=== PATIENT | female | born 1990 | race Asian ===

== ENCOUNTER 2016-04-13 09:37 | Inpatient (IN) | payer MEDICARE, MEDICAID ==
[~2016-04-13] VITALS: Ht 170.2 cm; Wt 89.0 kg
[~2016-04-13 09:37] MED LIST: RISP.5 PO
[2016-04-13] MEDS ORDERED: MAG HYDROX/AL HYDROX/SIMETH ES 30 ML SUSPENSION UDCUP PO PRN (13:15)
[2016-04-13] MEDS ORDERED: HydrOXYzine PAMOATE 50 MG CAPSULE PO PRN (13:15)
[2016-04-13] MEDS ORDERED: PROMETHAZINE HCL 25 MG TABLET PO PRN (13:15)
[2016-04-13 13:42] VITALS: BP 116/72
[2016-04-13] MEDS ORDERED: TUBERCULIN, PURIFIED PROTEIN DERIVATIVE 5 TU/0.1 ML SYG ID ONE (14:30)
[2016-04-13 17:13] VITALS: BP 95/80
[2016-04-13 17:15] VITALS: BP 95/80
[2016-04-13] MEDS: THIAMINE HCL 100 MG TABLET PO SCH (17:15)
[2016-04-13] MEDS ORDERED: LITHIUM CARBONATE 600 MG CAPSULE PO SCH (21:00)
[2016-04-13] MEDS ORDERED: OLANZapine 10 MG RAPDIS TABLET PO SCH (21:00)
[2016-04-14 01:25] VITALS: BP 123/69
[2016-04-14 08:17] VITALS: BP 115/64
[2016-04-14 08:26] LABS: BASOPHILS % (AUTO) 0.3 % (0.0-2.0); EOSINOPHILS % (AUTO) 2.6 % (1.0-6.0); HEMATOCRIT 40.9 % (36-46); HEMOGLOBIN 13.9 g/dL (12.0-16.0); LYMPHOCYTES # (AUTO) 3.9 K/uL (1.0-4.8); LYMPHOCYTES % (AUTO) 36.1 % (22.0-44.0); MEAN CORPUSCULAR HEMOGLOBIN 28.7 pg (26.0-34.0); MEAN CORPUSCULAR VOLUME 84 fL (80-100); MONOCYTES # (AUTO) 0.7 K/uL (0.1-1.0); MONOCYTES % (AUTO) 6.8 % (2.0-9.0); NEUTROPHILS # (AUTO) 5.8 K/uL (1.8-7.7); NEUTROPHILS % (AUTO) 54.2 % (40.0-70.0); PLATELET COUNT (AUTO) 483 K/uL (150-450); RED BLOOD CELL COUNT(AUTO) 4.84 MIL/uL (4.00-5.20); RED CELL DISTRIBUTION WIDTH 13.1 % (11.5-14.5); WHITE BLOOD COUNT (AUTO) 10.7 K/uL (4.5-11.0)
[2016-04-14 08:32] LABS: PREGNANCY RESULT, SERUM NEGATIVE (NEGATIVE)
[2016-04-14 08:34] LABS: LITHIUM 0.57 mmol/L (0.60-1.20)
[2016-04-14] MEDS: THIAMINE HCL 100 MG TABLET PO SCH ×2 (08:43→16:40)
[2016-04-14] MEDS: NICOTINE 21 MG/24 HOUR PATCH TD SCH (08:43)
[2016-04-14] MEDS: FOLIC ACID 1 MG TABLET PO SCH (08:43)
[2016-04-14] MEDS: MULTIVITAMINS WITH MINERALS, THERAPEUTIC TABLET PO SCH (08:43)
[2016-04-14 08:44] LABS: HEMOGLOBIN A1C 5.2 % (4.5-6.2)
[2016-04-14 08:45] LABS: ALANINE AMINOTRANSFERASE 17 U/L (12-78); ALBUMIN 3.4 g/dL (3.4-5.0); ANION GAP 10 mmol/L (8-16); ASPARTATE AMINOTRANSFERASE 10 U/L (15-37); BILIRUBIN,TOTAL 0.2 mg/dL (0.1-1.0); CALCIUM, TOTAL 8.7 mg/dL (8.8-10.5); CARBON DIOXIDE 25 mmol/L (22-29); CHLORIDE 107 mmol/L (98-107); CHOL/HDL RATIO 2.5 (3.9-5.7); CREATININE 0.62 mg/dL (0.60-1.30); GLOMERULAR FILTR. RATE CALC > 60 mL/min (>60); POTASSIUM 3.9 mmol/L (3.5-5.1); SODIUM SERUM 142 mmol/L (136-145); THYROID STIMULATING HORMONE 1.82 uIU/mL (0.36-3.74); TOTAL PROTEIN, SERUM 6.8 g/dL (6.4-8.2); UREA NITROGEN, BLOOD 13 mg/dL (7-18)
[2016-04-14 15:28] LABS: RAPID PLASMA REAGIN NONREACTIVE (NONREACTIVE)
[2016-04-14 16:18] VITALS: BP 110/76
[2016-04-14] MEDS ORDERED: OLANZapine 10 MG RAPDIS TABLET PO SCH (21:00)
[2016-04-15 02:59] VITALS: BP 101/61
[2016-04-15 07:58] LABS: APPEARANCE,URINE CLEAR (CLEAR); GLUCOSE, URINE (UA) NEGATIVE (NEGATIVE); KETONES,URINE NEGATIVE (NEGATIVE); LEUKOCYTE ESTERASE ,URINE TRACE (NEGATIVE); OCCULT BLOOD,URINE NEGATIVE (NEGATIVE); PH,URINE 6.5 (5.0-8.0); PROTEIN,URINE NEGATIVE (NEGATIVE)
[2016-04-15 08:01] LABS: ADD UA MICROSCOPIC YES
[2016-04-15 08:09] VITALS: BP 136/82
[2016-04-15] MEDS: NICOTINE 21 MG/24 HOUR PATCH TD SCH (08:38)
[2016-04-15] MEDS: THIAMINE HCL 100 MG TABLET PO SCH ×2 (08:38→16:06)
[2016-04-15] MEDS: MULTIVITAMINS WITH MINERALS, THERAPEUTIC TABLET PO SCH (08:39)
[2016-04-15] MEDS: FOLIC ACID 1 MG TABLET PO SCH (08:39)
[2016-04-15 08:43] LABS: RBC,URINE None Seen /HPF (0-2); SQUAMOUS EPITHELIAL CELL,UR Few /LPF (None Seen)
[2016-04-15] MEDS ORDERED: OLANZAPINE PAMOATE 405 MG/2.7 ML VIAL IM ONE (11:00)
[2016-04-15 13:48] VITALS: BP 132/69
[2016-04-15] MEDS: ACETAMINOPHEN 325 MG TABLET PO PRN (16:06)
[2016-04-15 16:12] VITALS: BP 114/67
[2016-04-15] MEDS: DIVALPROEX SODIUM 500 MG ER TABLET PO SCH (21:06)
[2016-04-15] MEDS: ZOLPIDEM TARTRATE 10 MG TABLET PO PRN (21:23)
[2016-04-16 00:20] VITALS: BP 110/60
[2016-04-16 08:34] VITALS: BP 112/74
[2016-04-16] MEDS: FOLIC ACID 1 MG TABLET PO SCH (08:56)
[2016-04-16] MEDS: MULTIVITAMINS WITH MINERALS, THERAPEUTIC TABLET PO SCH (08:56)
[2016-04-16] MEDS: THIAMINE HCL 100 MG TABLET PO SCH ×2 (08:56→16:39)
[2016-04-16] MEDS: NICOTINE 21 MG/24 HOUR PATCH TD SCH (09:01)
[2016-04-16 16:13] VITALS: BP 123/75
[2016-04-16] MEDS: LORazepam 2 MG TABLET PO PRN (16:18)
[2016-04-16] MEDS: DIVALPROEX SODIUM 500 MG ER TABLET PO SCH (20:36)
[2016-04-17 00:05] VITALS: BP 116/72
[2016-04-17] MEDS ORDERED: RISP3 PO (06:04)
[2016-04-17] MEDS ORDERED: RISP.5 PO (06:09)
[2016-04-17 08:09] VITALS: BP 117/71
[2016-04-17] MEDS: MULTIVITAMINS WITH MINERALS, THERAPEUTIC TABLET PO SCH (08:47)
[2016-04-17] MEDS: FOLIC ACID 1 MG TABLET PO SCH (08:47)
[2016-04-17] MEDS: THIAMINE HCL 100 MG TABLET PO SCH ×2 (08:47→16:41)
[2016-04-17] MEDS: NICOTINE 21 MG/24 HOUR PATCH TD SCH (08:48)
[2016-04-17 16:31] VITALS: BP 113/68
[2016-04-17] MEDS: DIVALPROEX SODIUM 500 MG ER TABLET PO SCH (20:35)
[2016-04-18 04:16] VITALS: BP 121/68
[2016-04-18] MEDS: THIAMINE HCL 100 MG TABLET PO SCH ×2 (08:42→16:28)
[2016-04-18] MEDS: MULTIVITAMINS WITH MINERALS, THERAPEUTIC TABLET PO SCH (08:42)
[2016-04-18] MEDS: FOLIC ACID 1 MG TABLET PO SCH (08:42)
[2016-04-18] MEDS: NICOTINE 21 MG/24 HOUR PATCH TD SCH (08:42)
[2016-04-18 12:53] VITALS: BP 108/70
[2016-04-18 16:02] VITALS: BP 122/62
[2016-04-18] MEDS: DIVALPROEX SODIUM 500 MG ER TABLET PO SCH (20:44)
[2016-04-18] MEDS: LORazepam 2 MG TABLET PO PRN (21:20)
[2016-04-19 04:35] VITALS: BP 104/65
[2016-04-19] MEDS: FOLIC ACID 1 MG TABLET PO SCH (08:33)
[2016-04-19] MEDS: MULTIVITAMINS WITH MINERALS, THERAPEUTIC TABLET PO SCH (08:33)
[2016-04-19] MEDS: NICOTINE 21 MG/24 HOUR PATCH TD SCH (08:33)
[2016-04-19] MEDS: THIAMINE HCL 100 MG TABLET PO SCH ×2 (08:33→16:42)
[2016-04-19 10:25] VITALS: BP 102/70
[2016-04-19 16:02] VITALS: BP 105/68
[2016-04-19] MEDS: DIVALPROEX SODIUM 500 MG ER TABLET PO SCH (20:42)
[2016-04-19] MEDS: ZOLPIDEM TARTRATE 10 MG TABLET PO PRN (21:12)
[2016-04-20 05:27] VITALS: BP 104/62
[2016-04-20 08:34] VITALS: BP 115/71
[2016-04-20] MEDS: THIAMINE HCL 100 MG TABLET PO SCH ×2 (08:42→16:45)
[2016-04-20] MEDS: FOLIC ACID 1 MG TABLET PO SCH (08:42)
[2016-04-20] MEDS: NICOTINE 21 MG/24 HOUR PATCH TD SCH (08:42)
[2016-04-20] MEDS: MULTIVITAMINS WITH MINERALS, THERAPEUTIC TABLET PO SCH (08:42)
[2016-04-20 16:13] VITALS: BP 118/66
[2016-04-20] MEDS: DIVALPROEX SODIUM 500 MG ER TABLET PO SCH (20:38)
[2016-04-21 00:36] VITALS: BP 110/62
[2016-04-21] MEDS: THIAMINE HCL 100 MG TABLET PO SCH ×2 (09:00→16:38)
[2016-04-21] MEDS: FOLIC ACID 1 MG TABLET PO SCH (09:00)
[2016-04-21] MEDS: NICOTINE 21 MG/24 HOUR PATCH TD SCH (09:00)
[2016-04-21] MEDS: MULTIVITAMINS WITH MINERALS, THERAPEUTIC TABLET PO SCH (09:00)
[2016-04-21 16:20] VITALS: BP 107/65
[2016-04-21] MEDS: DIVALPROEX SODIUM 500 MG ER TABLET PO SCH (20:52)
[2016-04-21] MEDS: ZOLPIDEM TARTRATE 10 MG TABLET PO PRN (22:31)
[2016-04-22 06:42] VITALS: BP 117/68
[2016-04-22 08:47] VITALS: BP 110/74
[2016-04-22] MEDS: THIAMINE HCL 100 MG TABLET PO SCH ×2 (09:58→16:26)
[2016-04-22] MEDS: NICOTINE 21 MG/24 HOUR PATCH TD SCH (09:58)
[2016-04-22] MEDS: MULTIVITAMINS WITH MINERALS, THERAPEUTIC TABLET PO SCH (09:58)
[2016-04-22] MEDS: FOLIC ACID 1 MG TABLET PO SCH (09:58)
[2016-04-22 16:21] VITALS: BP 120/76
[2016-04-22] MEDS: OLANZapine 5 MG RAPDIS TABLET PO PRN (16:37)
[2016-04-22] MEDS: DIVALPROEX SODIUM 500 MG ER TABLET PO SCH (20:22)
[2016-04-23 00:02] VITALS: BP 114/62
[2016-04-23 08:40] VITALS: BP 102/59
[2016-04-23] MEDS: THIAMINE HCL 100 MG TABLET PO SCH (09:00)
[2016-04-23] MEDS: FOLIC ACID 1 MG TABLET PO SCH (09:00)
[2016-04-23] MEDS: MULTIVITAMINS WITH MINERALS, THERAPEUTIC TABLET PO SCH (09:00)
[2016-04-23] MEDS: NICOTINE 21 MG/24 HOUR PATCH TD SCH (09:01)
[2016-04-23 16:15] VITALS: BP 113/65
[2016-04-23] MEDS: LORazepam 2 MG TABLET PO PRN (20:48)
[2016-04-23] MEDS: DIVALPROEX SODIUM 500 MG ER TABLET PO SCH (20:48)
[2016-04-24 00:03] VITALS: BP 118/63
[2016-04-24] MEDS: NICOTINE 21 MG/24 HOUR PATCH TD SCH (08:51)
[2016-04-24] MEDS: MULTIVITAMINS WITH MINERALS, THERAPEUTIC TABLET PO SCH (08:51)
[2016-04-24 16:15] VITALS: BP 120/73
[2016-04-24] MEDS: DIVALPROEX SODIUM 500 MG ER TABLET PO SCH (20:40)
[2016-04-25 04:12] VITALS: BP 127/71
[2016-04-25] MEDS: NICOTINE 21 MG/24 HOUR PATCH TD SCH (09:44)
[2016-04-25] MEDS: MULTIVITAMINS WITH MINERALS, THERAPEUTIC TABLET PO SCH (09:44)
[2016-04-25 16:17] VITALS: BP 115/67
[2016-04-25] MEDS: DIVALPROEX SODIUM 500 MG ER TABLET PO SCH (20:42)
[2016-04-26 00:35] VITALS: BP 107/62
[2016-04-26] MEDS: MULTIVITAMINS WITH MINERALS, THERAPEUTIC TABLET PO SCH (08:58)
[2016-04-26] MEDS: NICOTINE 21 MG/24 HOUR PATCH TD SCH (08:58)
[2016-04-26 16:41] VITALS: BP 113/68
[2016-04-26] MEDS: DIVALPROEX SODIUM 500 MG ER TABLET PO SCH (20:44)
[2016-04-26] MEDS: ZOLPIDEM TARTRATE 10 MG TABLET PO PRN (20:56)
[2016-04-27 00:23] VITALS: BP 110/66
[2016-04-27] MEDS: MULTIVITAMINS WITH MINERALS, THERAPEUTIC TABLET PO SCH (08:44)
[2016-04-27] MEDS: NICOTINE 21 MG/24 HOUR PATCH TD SCH (08:44)
[2016-04-27 09:19] VITALS: BP 110/65
[2016-04-27] MEDS: LORazepam 2 MG TABLET PO PRN (09:41)
[2016-04-27 16:08] VITALS: BP 105/75
[2016-04-27] MEDS: OLANZapine 5 MG RAPDIS TABLET PO PRN (20:12)
[2016-04-27] MEDS: DIVALPROEX SODIUM 500 MG ER TABLET PO SCH (20:12)
[2016-04-28 06:39] VITALS: BP 109/73
[2016-04-28 08:21] VITALS: BP 109/65
[2016-04-28] MEDS: LORazepam 2 MG TABLET PO PRN (08:42)
[2016-04-28] MEDS: NICOTINE 21 MG/24 HOUR PATCH TD SCH (08:42)
[2016-04-28] MEDS: OLANZapine 5 MG RAPDIS TABLET PO PRN (08:42)
[2016-04-28] MEDS: MULTIVITAMINS WITH MINERALS, THERAPEUTIC TABLET PO SCH (08:42)
[2016-04-28 16:09] VITALS: BP 112/67
[2016-04-28] MEDS: DIVALPROEX SODIUM 500 MG ER TABLET PO SCH (20:44)
[2016-04-29 01:59] VITALS: BP 120/67
[2016-04-29 08:17] VITALS: BP 104/80
[2016-04-29] MEDS: MULTIVITAMINS WITH MINERALS, THERAPEUTIC TABLET PO SCH (08:32)
[2016-04-29] MEDS: NICOTINE 21 MG/24 HOUR PATCH TD SCH (08:32)
[2016-04-29 16:06] VITALS: BP 112/60
[2016-04-29] MEDS: DIVALPROEX SODIUM 500 MG ER TABLET PO SCH (20:05)
[2016-04-30 04:04] VITALS: BP 123/75
[2016-04-30] MEDS: NICOTINE 21 MG/24 HOUR PATCH TD SCH (08:36)
[2016-04-30] MEDS: MULTIVITAMINS WITH MINERALS, THERAPEUTIC TABLET PO SCH (08:36)
[2016-04-30] MEDS: LORazepam 2 MG TABLET PO PRN (09:18)
[2016-04-30 16:14] VITALS: BP 114/74
[2016-04-30] MEDS: DIVALPROEX SODIUM 500 MG ER TABLET PO SCH (22:03)
[2016-05-01 00:08] VITALS: BP 118/72
[2016-05-01] MEDS: MULTIVITAMINS WITH MINERALS, THERAPEUTIC TABLET PO SCH (09:12)
[2016-05-01] MEDS: NICOTINE 21 MG/24 HOUR PATCH TD SCH (09:12)
[2016-05-01 17:29] VITALS: BP 118/75
[2016-05-01] MEDS: DIVALPROEX SODIUM 500 MG ER TABLET PO SCH (20:40)
[2016-05-02 01:48] VITALS: BP 121/77
[2016-05-02] MEDS: MULTIVITAMINS WITH MINERALS, THERAPEUTIC TABLET PO SCH (08:50)
[2016-05-02] MEDS: NICOTINE 21 MG/24 HOUR PATCH TD SCH (08:51)
[2016-05-02 09:19] VITALS: BP 97/45
[2016-05-02 10:12] VITALS: BP 101/57
[2016-05-02 17:39] VITALS: BP 125/68
[2016-05-02] MEDS: DIVALPROEX SODIUM 500 MG ER TABLET PO SCH (20:35)
[2016-05-02] MEDS: ZOLPIDEM TARTRATE 10 MG TABLET PO PRN (22:12)
[2016-05-03 01:49] VITALS: BP 106/68
[2016-05-03] MEDS: NICOTINE 21 MG/24 HOUR PATCH TD SCH (08:30)
[2016-05-03] MEDS: MULTIVITAMINS WITH MINERALS, THERAPEUTIC TABLET PO SCH (08:30)
[2016-05-03 16:09] VITALS: BP 120/65
[2016-05-03] MEDS: OLANZapine 5 MG RAPDIS TABLET PO PRN (19:40)
[2016-05-03] MEDS: DIVALPROEX SODIUM 500 MG ER TABLET PO SCH (20:31)
[2016-05-04 04:15] VITALS: BP 122/71
[2016-05-04] MEDS: MULTIVITAMINS WITH MINERALS, THERAPEUTIC TABLET PO SCH (09:21)
[2016-05-04] MEDS: NICOTINE 21 MG/24 HOUR PATCH TD SCH (09:22)
[2016-05-04] MEDS: LORazepam 2 MG TABLET PO PRN (09:25)
[2016-05-04 16:10] VITALS: BP 102/71
[2016-05-04] MEDS: DIVALPROEX SODIUM 500 MG ER TABLET PO SCH (20:22)
[2016-05-04] MEDS: OLANZapine 5 MG RAPDIS TABLET PO PRN (20:56)
[2016-05-05 00:28] VITALS: BP 100/66
[2016-05-05] MEDS: MULTIVITAMINS WITH MINERALS, THERAPEUTIC TABLET PO SCH (08:36)
[2016-05-05] MEDS: NICOTINE 21 MG/24 HOUR PATCH TD SCH (08:36)
[2016-05-05 08:37] VITALS: BP 105/60
[2016-05-05 16:08] VITALS: BP 106/67
[2016-05-05] MEDS: DIVALPROEX SODIUM 500 MG ER TABLET PO SCH (20:19)
[2016-05-06 03:54] VITALS: BP 108/68
[2016-05-06] MEDS: MULTIVITAMINS WITH MINERALS, THERAPEUTIC TABLET PO SCH (08:51)
[2016-05-06] MEDS: NICOTINE 21 MG/24 HOUR PATCH TD SCH (08:52)
[2016-05-06 16:01] VITALS: BP 112/67
[2016-05-06] MEDS: DIVALPROEX SODIUM 500 MG ER TABLET PO SCH (20:17)
[2016-05-06] MEDS: OLANZapine 5 MG RAPDIS TABLET PO PRN (21:21)
[2016-05-07 04:48] VITALS: BP 109/62
[2016-05-07] MEDS: MULTIVITAMINS WITH MINERALS, THERAPEUTIC TABLET PO SCH (08:28)
[2016-05-07] MEDS: NICOTINE 21 MG/24 HOUR PATCH TD SCH (08:28)
[2016-05-07 09:02] VITALS: BP 98/63
[2016-05-07] MEDS ORDERED: HALOPERIDOL 5 MG TABLET PO PRN (13:15)
[2016-05-07] MEDS ORDERED: TUBERCULIN, PURIFIED PROTEIN DERIVATIVE 5 TU/0.1 ML SYG ID ONE (13:15)
[2016-05-07 16:07] VITALS: BP 130/62
[2016-05-07] MEDS: DIVALPROEX SODIUM 500 MG ER TABLET PO SCH (21:16)
[2016-05-08 04:12] VITALS: BP 125/81
[2016-05-08 07:54] LABS: BASOPHILS # (AUTO) 0.03 K/uL (0.00-0.20); BASOPHILS % (AUTO) 0.3 % (0.0-2.0); EOSINOPHILS % (AUTO) 1.65 % (1.0-6.0); HEMATOCRIT 38.6 % (36-46); HEMOGLOBIN 13.2 g/dL (12.0-16.0); LYMPHOCYTES # (AUTO) 4.5 K/uL (1.0-4.8); MEAN CORPUSCULAR HEMOGLOBIN 29.2 pg (26.0-34.0); MEAN CORPUSCULAR HGB CONC 34.3 G/dL (31.0-37.0); MEAN CORPUSCULAR VOLUME 85 fL (80-100); MONOCYTES # (AUTO) 1.4 K/uL (0.1-1.0); MONOCYTES % (AUTO) 11.4 % (2.0-9.0); NEUTROPHILS # (AUTO) 6.1 K/uL (1.8-7.7); NEUTROPHILS % (AUTO) 49.7 % (40.0-70.0); PLATELET COUNT (AUTO) 402 K/uL (150-450); RED BLOOD CELL COUNT(AUTO) 4.53 MIL/uL (4.00-5.20); RED CELL DISTRIBUTION WIDTH 14.9 % (11.5-14.5); WHITE BLOOD COUNT (AUTO) 12.3 K/uL (4.5-11.0)
[2016-05-08] MEDS: NICOTINE 21 MG/24 HOUR PATCH TD SCH (08:36)
[2016-05-08] MEDS: MULTIVITAMINS WITH MINERALS, THERAPEUTIC TABLET PO SCH (08:37)
[2016-05-08] MEDS ORDERED: CloZAPine 25 MG TABLET PO SCH (09:00)
[2016-05-08 10:17] VITALS: BP 118/73
[2016-05-08] MEDS: LORazepam 2 MG TABLET PO PRN ×2 (12:19→17:31)
[2016-05-08 16:03] VITALS: BP 105/89
[2016-05-08] MEDS: DIVALPROEX SODIUM 500 MG ER TABLET PO SCH (20:40)
[2016-05-08] MEDS: ZOLPIDEM TARTRATE 10 MG TABLET PO PRN (20:55)
[2016-05-09 06:46] VITALS: BP 107/61
[2016-05-09 08:02] VITALS: BP 99/58
[2016-05-09] MEDS: NICOTINE 21 MG/24 HOUR PATCH TD SCH (08:23)
[2016-05-09] MEDS: MULTIVITAMINS WITH MINERALS, THERAPEUTIC TABLET PO SCH (08:23)
[2016-05-09] MEDS ORDERED: CloZAPine 25 MG TABLET PO SCH ×2 (09:00→21:00)
[2016-05-09] MEDS ORDERED: INFLUENZA VIRUS VACCINE QVS 2016-17 (3YR+)/PF 60 MCG/0.5 ML SYRINGE IM ONE (11:15)
[2016-05-09 13:00] VITALS: BP 115/56
[2016-05-09] MEDS: LORazepam 2 MG TABLET PO PRN ×2 (13:04→22:06)
[2016-05-09 16:05] VITALS: BP 124/64
[2016-05-09] MEDS: DIVALPROEX SODIUM 500 MG ER TABLET PO SCH (20:16)
[2016-05-10 00:10] VITALS: BP 120/72
[2016-05-10 08:08] VITALS: BP 107/58
[2016-05-10] MEDS: MULTIVITAMINS WITH MINERALS, THERAPEUTIC TABLET PO SCH (08:28)
[2016-05-10] MEDS: NICOTINE 21 MG/24 HOUR PATCH TD SCH (08:28)
[2016-05-10] MEDS ORDERED: CloZAPine 25 MG TABLET PO SCH ×2 (09:00→21:00)
[2016-05-10 16:14] VITALS: BP 109/67
[2016-05-10] MEDS: DIVALPROEX SODIUM 500 MG ER TABLET PO SCH (21:10)
[2016-05-11 00:01] VITALS: BP 116/72
[2016-05-11 08:37] VITALS: BP 107/60
[2016-05-11] MEDS: MULTIVITAMINS WITH MINERALS, THERAPEUTIC TABLET PO SCH (08:40)
[2016-05-11] MEDS: NICOTINE 21 MG/24 HOUR PATCH TD SCH (08:40)
[2016-05-11] MEDS: CloZAPine 25 MG TABLET PO SCH ×2 (08:40→21:04)
[2016-05-11 16:41] VITALS: BP 116/62
[2016-05-11] MEDS: DIVALPROEX SODIUM 500 MG ER TABLET PO SCH (21:05)
[2016-05-12 06:24] VITALS: BP 101/61
[2016-05-12 08:02] VITALS: BP 104/62
[2016-05-12 08:29] LABS: GLUCOSE, URINE (UA) 250 mg/dL (NEGATIVE); KETONES,URINE 15 mg/dL (NEGATIVE); LEUKOCYTE ESTERASE ,URINE NEGATIVE (NEGATIVE); OCCULT BLOOD,URINE NEGATIVE (NEGATIVE); PROTEIN,URINE NEGATIVE (NEGATIVE)
[2016-05-12] MEDS: CloZAPine 25 MG TABLET PO SCH ×2 (08:34→20:35)
[2016-05-12] MEDS: MULTIVITAMINS WITH MINERALS, THERAPEUTIC TABLET PO SCH (08:34)
[2016-05-12] MEDS: NICOTINE 21 MG/24 HOUR PATCH TD SCH (08:35)
[2016-05-12 09:07] LABS: ADD UA MICROSCOPIC YES; APPEARANCE,URINE HAZY (CLEAR)
[2016-05-12 09:54] LABS: RBC,URINE 0-2 /HPF (0-2); SQUAMOUS EPITHELIAL CELL,UR Few /LPF (None Seen); WBC,URINE 0-2 /HPF (0-5)
[2016-05-12 16:14] VITALS: BP 120/84
[2016-05-12] MEDS: DIVALPROEX SODIUM 500 MG ER TABLET PO SCH (20:35)
[2016-05-12] MEDS: ZOLPIDEM TARTRATE 10 MG TABLET PO PRN (22:17)
[2016-05-13 00:47] VITALS: BP 102/65
[2016-05-13 08:19] VITALS: BP 104/57
[2016-05-13] MEDS: MULTIVITAMINS WITH MINERALS, THERAPEUTIC TABLET PO SCH (08:34)
[2016-05-13] MEDS: NICOTINE 21 MG/24 HOUR PATCH TD SCH (08:37)
[2016-05-13] MEDS ORDERED: OLANZAPINE PAMOATE 405 MG/2.7 ML VIAL IM SCH (09:00)
[2016-05-13] MEDS ORDERED: CloZAPine 25 MG TABLET PO SCH (09:00)
[2016-05-13 16:10] VITALS: BP 109/64
[2016-05-13] MEDS: LORazepam 2 MG TABLET PO PRN (16:23)
[2016-05-13] MEDS: DIVALPROEX SODIUM 500 MG ER TABLET PO SCH (20:31)
[2016-05-13] MEDS ORDERED: CloZAPine 100 MG TABLET PO SCH (21:00)
[2016-05-14 06:58] VITALS: BP 107/62
[2016-05-14 08:02] VITALS: BP 110/64
[2016-05-14] MEDS: MULTIVITAMINS WITH MINERALS, THERAPEUTIC TABLET PO SCH (08:22)
[2016-05-14] MEDS: NICOTINE 21 MG/24 HOUR PATCH TD SCH (08:22)
[2016-05-14] MEDS ORDERED: CloZAPine 25 MG TABLET PO SCH (09:00)
[2016-05-14 16:08] VITALS: BP 119/66
[2016-05-14] MEDS: LORazepam 2 MG TABLET PO PRN (17:22)
[2016-05-14] MEDS: DIVALPROEX SODIUM 500 MG ER TABLET PO SCH (20:35)
[2016-05-14] MEDS ORDERED: CloZAPine 100 MG TABLET PO SCH (21:00)
[2016-05-15 02:15] VITALS: BP 109/62
[2016-05-15 08:02] VITALS: BP 108/70
[2016-05-15 08:06] LABS: BASOPHILS # (AUTO) 0.05 K/uL (0.00-0.20); BASOPHILS % (AUTO) 0.5 % (0.0-2.0); EOSINOPHILS # (AUTO) 0.28 K/uL (0.00-0.70); EOSINOPHILS % (AUTO) 2.66 % (1.0-6.0); HEMATOCRIT 39.9 % (36-46); HEMOGLOBIN 13.7 g/dL (12.0-16.0); LYMPHOCYTES # (AUTO) 4.4 K/uL (1.0-4.8); LYMPHOCYTES % (AUTO) 42.2 % (22.0-44.0); MEAN CORPUSCULAR HEMOGLOBIN 29.2 pg (26.0-34.0); MEAN CORPUSCULAR HGB CONC 34.2 G/dL (31.0-37.0); MEAN CORPUSCULAR VOLUME 85 fL (80-100); MONOCYTES # (AUTO) 1.2 K/uL (0.1-1.0); MONOCYTES % (AUTO) 11.1 % (2.0-9.0); NEUTROPHILS # (AUTO) 4.6 K/uL (1.8-7.7); NEUTROPHILS % (AUTO) 43.6 % (40.0-70.0); PLATELET COUNT (AUTO) 385 K/uL (150-450); RED BLOOD CELL COUNT(AUTO) 4.68 MIL/uL (4.00-5.20); RED CELL DISTRIBUTION WIDTH 13.4 % (11.5-14.5); WHITE BLOOD COUNT (AUTO) 10.5 K/uL (4.5-11.0)
[2016-05-15] MEDS: NICOTINE 21 MG/24 HOUR PATCH TD SCH (08:53)
[2016-05-15] MEDS: MULTIVITAMINS WITH MINERALS, THERAPEUTIC TABLET PO SCH (08:53)
[2016-05-15] MEDS ORDERED: CloZAPine 25 MG TABLET PO SCH (09:00)
[2016-05-15 16:08] VITALS: BP 109/62
[2016-05-15] MEDS: DIVALPROEX SODIUM 500 MG ER TABLET PO SCH (20:41)
[2016-05-15] MEDS ORDERED: CloZAPine 100 MG TABLET PO SCH (21:00)
[2016-05-16 01:50] VITALS: BP 104/66
[2016-05-16 08:28] VITALS: BP 106/63
[2016-05-16] MEDS: NICOTINE 21 MG/24 HOUR PATCH TD SCH (09:05)
[2016-05-16] MEDS: CloZAPine 100 MG TABLET PO SCH ×2 (09:05→20:58)
[2016-05-16] MEDS: MULTIVITAMINS WITH MINERALS, THERAPEUTIC TABLET PO SCH (09:06)
[2016-05-16 16:12] VITALS: BP 123/78
[2016-05-16] MEDS: DIVALPROEX SODIUM 500 MG ER TABLET PO SCH (20:59)
[2016-05-17 05:10] VITALS: BP 121/71
[2016-05-17 08:02] VITALS: BP 118/74
[2016-05-17] MEDS: MULTIVITAMINS WITH MINERALS, THERAPEUTIC TABLET PO SCH (08:36)
[2016-05-17] MEDS: CloZAPine 100 MG TABLET PO SCH ×2 (08:37→20:36)
[2016-05-17] MEDS: NICOTINE 21 MG/24 HOUR PATCH TD SCH (08:37)
[2016-05-17 16:12] VITALS: BP 119/62
[2016-05-17] MEDS: DIVALPROEX SODIUM 500 MG ER TABLET PO SCH (20:36)
[2016-05-18 03:24] VITALS: BP 123/71
[2016-05-18 08:38] VITALS: BP 109/60
[2016-05-18] MEDS ORDERED: CloZAPine 25 MG TABLET PO SCH (09:00)
[2016-05-18] MEDS: NICOTINE 21 MG/24 HOUR PATCH TD SCH (09:06)
[2016-05-18] MEDS: MULTIVITAMINS WITH MINERALS, THERAPEUTIC TABLET PO SCH (09:06)
[2016-05-18 16:19] VITALS: BP 115/59
[2016-05-18] MEDS ORDERED: CloZAPine 100 MG TABLET PO SCH (21:00)
[2016-05-18] MEDS: DIVALPROEX SODIUM 500 MG ER TABLET PO SCH (21:19)
[2016-05-19 06:11] VITALS: BP 105/66
[2016-05-19 08:02] VITALS: BP 110/78
[2016-05-19] MEDS: MULTIVITAMINS WITH MINERALS, THERAPEUTIC TABLET PO SCH (08:25)
[2016-05-19] MEDS: NICOTINE 21 MG/24 HOUR PATCH TD SCH (08:25)
[2016-05-19] MEDS ORDERED: CloZAPine 25 MG TABLET PO SCH (09:00)
[2016-05-19 16:01] VITALS: BP 122/67
[2016-05-19] MEDS: DIVALPROEX SODIUM 500 MG ER TABLET PO SCH (20:52)
[2016-05-19] MEDS ORDERED: CloZAPine 100 MG TABLET PO SCH (21:00)
[2016-05-20 05:55] VITALS: BP 103/60
[2016-05-20 08:06] VITALS: BP 109/61
[2016-05-20] MEDS: MULTIVITAMINS WITH MINERALS, THERAPEUTIC TABLET PO SCH (09:17)
[2016-05-20] MEDS: CloZAPine 100 MG TABLET PO SCH ×2 (09:17→20:43)
[2016-05-20] MEDS: NICOTINE 21 MG/24 HOUR PATCH TD SCH (09:17)
[2016-05-20 16:02] VITALS: BP 112/72
[2016-05-20] MEDS: DIVALPROEX SODIUM 500 MG ER TABLET PO SCH (20:42)
[2016-05-21 00:15] VITALS: BP 116/62
[2016-05-21] MEDS: NICOTINE 21 MG/24 HOUR PATCH TD SCH (09:00)
[2016-05-21] MEDS: MULTIVITAMINS WITH MINERALS, THERAPEUTIC TABLET PO SCH (11:32)
[2016-05-21] MEDS: CloZAPine 100 MG TABLET PO SCH ×2 (11:32→20:46)
[2016-05-21 14:51] VITALS: BP 123/73
[2016-05-21 16:10] VITALS: BP 115/66
[2016-05-21] MEDS: LORazepam 2 MG TABLET PO PRN (16:26)
[2016-05-21] MEDS: DIVALPROEX SODIUM 500 MG ER TABLET PO SCH (20:46)
[2016-05-22 02:19] VITALS: BP 113/60
[2016-05-22 08:11] LABS: BASOPHILS % (AUTO) 0.3 % (0.0-2.0); EOSINOPHILS % (AUTO) 5.1 % (1.0-6.0); HEMATOCRIT 39.8 % (36-46); HEMOGLOBIN 13.7 g/dL (12.0-16.0); LYMPHOCYTES # (AUTO) 3.5 K/uL (1.0-4.8); LYMPHOCYTES % (AUTO) 32.9 % (22.0-44.0); MEAN CORPUSCULAR HGB CONC 34.3 G/dL (31.0-37.0); MEAN CORPUSCULAR VOLUME 85 fL (80-100); MONOCYTES % (AUTO) 9.9 % (2.0-9.0); NEUTROPHILS # (AUTO) 5.4 K/uL (1.8-7.7); NEUTROPHILS % (AUTO) 51.8 % (40.0-70.0); PLATELET COUNT (AUTO) 355 K/uL (150-450); RED BLOOD CELL COUNT(AUTO) 4.71 MIL/uL (4.00-5.20); RED CELL DISTRIBUTION WIDTH 13.4 % (11.5-14.5); WHITE BLOOD COUNT (AUTO) 10.5 K/uL (4.5-11.0)
[2016-05-22 08:30] VITALS: BP 108/71
[2016-05-22] MEDS: NICOTINE 21 MG/24 HOUR PATCH TD SCH (08:42)
[2016-05-22] MEDS: CloZAPine 100 MG TABLET PO SCH ×2 (08:42→20:44)
[2016-05-22] MEDS: MULTIVITAMINS WITH MINERALS, THERAPEUTIC TABLET PO SCH (08:42)
[2016-05-22] MEDS: LORazepam 2 MG TABLET PO PRN (09:19)
[2016-05-22 10:16] VITALS: BP 108/73
[2016-05-22 16:36] VITALS: BP 125/77
[2016-05-22] MEDS: DIVALPROEX SODIUM 500 MG ER TABLET PO SCH (20:45)
[2016-05-23 00:17] VITALS: BP 110/64
[2016-05-23 08:20] VITALS: BP 126/67
[2016-05-23] MEDS: CloZAPine 100 MG TABLET PO SCH ×2 (08:31→20:38)
[2016-05-23] MEDS: MULTIVITAMINS WITH MINERALS, THERAPEUTIC TABLET PO SCH (08:31)
[2016-05-23] MEDS: NICOTINE 21 MG/24 HOUR PATCH TD SCH (08:31)
[2016-05-23 16:11] VITALS: BP 118/72
[2016-05-23] MEDS: DIVALPROEX SODIUM 500 MG ER TABLET PO SCH (20:39)
[2016-05-24 02:34] VITALS: BP 100/63
[2016-05-24 08:39] VITALS: BP 118/65
[2016-05-24] MEDS: MULTIVITAMINS WITH MINERALS, THERAPEUTIC TABLET PO SCH (09:22)
[2016-05-24] MEDS: NICOTINE 21 MG/24 HOUR PATCH TD SCH (09:22)
[2016-05-24] MEDS: CloZAPine 100 MG TABLET PO SCH ×2 (09:22→20:29)
[2016-05-24 16:04] VITALS: BP 123/68
[2016-05-24] MEDS: DIVALPROEX SODIUM 500 MG ER TABLET PO SCH (20:29)
[2016-05-25 00:31] VITALS: BP 126/61
[2016-05-25 08:38] VITALS: BP 114/57
[2016-05-25] MEDS: NICOTINE 21 MG/24 HOUR PATCH TD SCH (09:06)
[2016-05-25] MEDS: MULTIVITAMINS WITH MINERALS, THERAPEUTIC TABLET PO SCH (09:06)
[2016-05-25] MEDS: CloZAPine 100 MG TABLET PO SCH ×2 (09:06→21:05)
[2016-05-25 16:10] VITALS: BP 119/72
[2016-05-25] MEDS: DIVALPROEX SODIUM 500 MG ER TABLET PO SCH (21:04)
[2016-05-26 01:14] VITALS: BP 123/71
[2016-05-26 08:37] VITALS: BP 101/58
[2016-05-26] MEDS: MULTIVITAMINS WITH MINERALS, THERAPEUTIC TABLET PO SCH (08:54)
[2016-05-26] MEDS: CloZAPine 100 MG TABLET PO SCH ×2 (08:54→20:52)
[2016-05-26] MEDS: NICOTINE 21 MG/24 HOUR PATCH TD SCH (08:54)
[2016-05-26 16:01] VITALS: BP 112/67
[2016-05-26] MEDS: DIVALPROEX SODIUM 500 MG ER TABLET PO SCH (20:53)
[2016-05-27 00:18] VITALS: BP 107/68
[2016-05-27] MEDS: CloZAPine 100 MG TABLET PO SCH ×2 (08:42→21:00)
[2016-05-27] MEDS: NICOTINE 21 MG/24 HOUR PATCH TD SCH (08:42)
[2016-05-27] MEDS: MULTIVITAMINS WITH MINERALS, THERAPEUTIC TABLET PO SCH (08:42)
[2016-05-27 08:58] VITALS: BP 105/63
[2016-05-27 16:02] VITALS: BP 108/67
[2016-05-27] MEDS: DIVALPROEX SODIUM 500 MG ER TABLET PO SCH (21:00)
[2016-05-28 01:09] VITALS: BP 101/67
[2016-05-28 08:02] VITALS: BP 118/67
[2016-05-28] MEDS: CloZAPine 100 MG TABLET PO SCH ×2 (09:21→21:22)
[2016-05-28] MEDS: MULTIVITAMINS WITH MINERALS, THERAPEUTIC TABLET PO SCH (09:21)
[2016-05-28] MEDS: NICOTINE 21 MG/24 HOUR PATCH TD SCH (09:21)
[2016-05-28 16:02] VITALS: BP 109/78
[2016-05-28] MEDS: DIVALPROEX SODIUM 500 MG ER TABLET PO SCH (21:22)
[2016-05-29 06:21] VITALS: BP 101/67
[2016-05-29 08:11] LABS: BASOPHILS % (AUTO) 0.2 % (0.0-2.0); EOSINOPHILS % (AUTO) 5.2 % (1.0-6.0); HEMATOCRIT 39.5 % (36-46); HEMOGLOBIN 13.7 g/dL (12.0-16.0); LYMPHOCYTES # (AUTO) 4.1 K/uL (1.0-4.8); LYMPHOCYTES % (AUTO) 37.1 % (22.0-44.0); MEAN CORPUSCULAR HEMOGLOBIN 29.3 pg (26.0-34.0); MEAN CORPUSCULAR HGB CONC 34.5 G/dL (31.0-37.0); MEAN CORPUSCULAR VOLUME 85 fL (80-100); MONOCYTES % (AUTO) 8.7 % (2.0-9.0); NEUTROPHILS # (AUTO) 5.4 K/uL (1.8-7.7); NEUTROPHILS % (AUTO) 48.8 % (40.0-70.0); PLATELET COUNT (AUTO) 385 K/uL (150-450); RED BLOOD CELL COUNT(AUTO) 4.66 MIL/uL (4.00-5.20); RED CELL DISTRIBUTION WIDTH 13.2 % (11.5-14.5); WHITE BLOOD COUNT (AUTO) 11.1 K/uL (4.5-11.0)
[2016-05-29] MEDS: NICOTINE 21 MG/24 HOUR PATCH TD SCH (08:28)
[2016-05-29] MEDS: CloZAPine 100 MG TABLET PO SCH ×2 (08:28→20:46)
[2016-05-29] MEDS: MULTIVITAMINS WITH MINERALS, THERAPEUTIC TABLET PO SCH (08:28)
[2016-05-29 08:35] VITALS: BP 118/66
[2016-05-29 11:34] LABS: CLOZAPINE 406 ng/mL (350-650); CLOZAPINE & NORCLOZAPINE 506 ng/mL; NORCLOZAPINE 100 ng/mL (Not Estab.)
[2016-05-29 16:02] VITALS: BP 126/73
[2016-05-29] MEDS: DIVALPROEX SODIUM 500 MG ER TABLET PO SCH (20:47)
[2016-05-30 06:26] VITALS: BP 103/65
[2016-05-30 08:19] VITALS: BP 123/83
[2016-05-30] MEDS: CloZAPine 100 MG TABLET PO SCH ×2 (08:26→20:13)
[2016-05-30] MEDS: MULTIVITAMINS WITH MINERALS, THERAPEUTIC TABLET PO SCH (08:26)
[2016-05-30] MEDS: NICOTINE 21 MG/24 HOUR PATCH TD SCH (08:27)
[2016-05-30 16:03] VITALS: BP 115/71
[2016-05-30] MEDS: DIVALPROEX SODIUM 500 MG ER TABLET PO SCH (20:13)
[2016-05-31 01:37] VITALS: BP 105/78
[2016-05-31] MEDS: NICOTINE 21 MG/24 HOUR PATCH TD SCH (08:24)
[2016-05-31] MEDS: CloZAPine 100 MG TABLET PO SCH ×2 (08:24→20:40)
[2016-05-31] MEDS: MULTIVITAMINS WITH MINERALS, THERAPEUTIC TABLET PO SCH (08:24)
[2016-05-31 08:51] VITALS: BP 119/69
[2016-05-31 16:10] VITALS: BP 111/75
[2016-05-31] MEDS: DIVALPROEX SODIUM 500 MG ER TABLET PO SCH (20:39)
[2016-06-01 02:46] VITALS: BP 119/71
[2016-06-01 08:13] VITALS: BP 113/62
[2016-06-01] MEDS: CloZAPine 100 MG TABLET PO SCH ×2 (08:28→20:43)
[2016-06-01] MEDS: MULTIVITAMINS WITH MINERALS, THERAPEUTIC TABLET PO SCH (08:28)
[2016-06-01] MEDS: NICOTINE 21 MG/24 HOUR PATCH TD SCH (08:29)
[2016-06-01 16:59] VITALS: BP 113/64
[2016-06-01] MEDS: DIVALPROEX SODIUM 500 MG ER TABLET PO SCH (20:43)
[2016-06-02 00:52] VITALS: BP 105/68
[2016-06-02 08:02] VITALS: BP 101/60
[2016-06-02] MEDS: MULTIVITAMINS WITH MINERALS, THERAPEUTIC TABLET PO SCH (08:41)
[2016-06-02] MEDS: NICOTINE 21 MG/24 HOUR PATCH TD SCH (08:41)
[2016-06-02] MEDS: CloZAPine 100 MG TABLET PO SCH ×2 (08:41→20:31)
[2016-06-02 16:08] VITALS: BP 110/84
[2016-06-02] MEDS: DIVALPROEX SODIUM 500 MG ER TABLET PO SCH (20:31)
[2016-06-03 00:19] VITALS: BP 121/80
[2016-06-03 08:05] VITALS: BP 118/62
[2016-06-03] MEDS: MULTIVITAMINS WITH MINERALS, THERAPEUTIC TABLET PO SCH (08:35)
[2016-06-03] MEDS: CloZAPine 100 MG TABLET PO SCH ×2 (08:35→20:52)
[2016-06-03] MEDS: NICOTINE 21 MG/24 HOUR PATCH TD SCH (08:35)
[2016-06-03 16:05] VITALS: BP 126/69
[2016-06-03] MEDS: DIVALPROEX SODIUM 500 MG ER TABLET PO SCH (20:52)
[2016-06-04 00:20] VITALS: BP 106/60
[2016-06-04 08:23] VITALS: BP 100/61
[2016-06-04] MEDS: CloZAPine 100 MG TABLET PO SCH ×2 (09:00→20:36)
[2016-06-04] MEDS: NICOTINE 21 MG/24 HOUR PATCH TD SCH (09:00)
[2016-06-04] MEDS: MULTIVITAMINS WITH MINERALS, THERAPEUTIC TABLET PO SCH (09:00)
[2016-06-04 16:10] VITALS: BP 104/77
[2016-06-04] MEDS: DIVALPROEX SODIUM 500 MG ER TABLET PO SCH (20:37)
[2016-06-05 00:52] VITALS: BP 106/74
[2016-06-05 08:02] VITALS: BP 122/83
[2016-06-05 08:05] LABS: BASOPHILS # (AUTO) 0.05 K/uL (0.00-0.20); BASOPHILS % (AUTO) 0.5 % (0.0-2.0); EOSINOPHILS # (AUTO) 0.31 K/uL (0.00-0.70); EOSINOPHILS % (AUTO) 2.83 % (1.0-6.0); HEMATOCRIT 42.4 % (36-46); LYMPHOCYTES # (AUTO) 4.4 K/uL (1.0-4.8); LYMPHOCYTES % (AUTO) 40.3 % (22.0-44.0); MEAN CORPUSCULAR HEMOGLOBIN 28.5 pg (26.0-34.0); MEAN CORPUSCULAR VOLUME 87 fL (80-100); MONOCYTES # (AUTO) 1.1 K/uL (0.1-1.0); MONOCYTES % (AUTO) 9.8 % (2.0-9.0); NEUTROPHILS # (AUTO) 5.1 K/uL (1.8-7.7); NEUTROPHILS % (AUTO) 46.6 % (40.0-70.0); PLATELET COUNT (AUTO) 291 K/uL (150-450); RED BLOOD CELL COUNT(AUTO) 4.89 MIL/uL (4.00-5.20)
[2016-06-05] MEDS: MULTIVITAMINS WITH MINERALS, THERAPEUTIC TABLET PO SCH (08:55)
[2016-06-05] MEDS: CloZAPine 100 MG TABLET PO SCH ×2 (08:55→20:45)
[2016-06-05] MEDS: NICOTINE 21 MG/24 HOUR PATCH TD SCH (08:55)
[2016-06-05 16:03] VITALS: BP 123/77
[2016-06-05] MEDS: DIVALPROEX SODIUM 500 MG ER TABLET PO SCH (20:45)
[2016-06-06 02:16] VITALS: BP 110/76
[2016-06-06 08:26] VITALS: BP 122/66
[2016-06-06] MEDS: MULTIVITAMINS WITH MINERALS, THERAPEUTIC TABLET PO SCH (09:21)
[2016-06-06] MEDS: CloZAPine 100 MG TABLET PO SCH ×2 (09:21→20:32)
[2016-06-06] MEDS: NICOTINE 21 MG/24 HOUR PATCH TD SCH (09:21)
[2016-06-06 16:03] VITALS: BP 115/73
[2016-06-06] MEDS: DIVALPROEX SODIUM 500 MG ER TABLET PO SCH (20:32)
[2016-06-07 00:47] VITALS: BP 101/60
[2016-06-07] MEDS: CloZAPine 100 MG TABLET PO SCH ×2 (08:49→20:55)
[2016-06-07] MEDS: MULTIVITAMINS WITH MINERALS, THERAPEUTIC TABLET PO SCH (08:49)
[2016-06-07] MEDS: NICOTINE 21 MG/24 HOUR PATCH TD SCH (08:49)
[2016-06-07 16:00] VITALS: BP 123/77
[2016-06-07] MEDS: DIVALPROEX SODIUM 500 MG ER TABLET PO SCH (20:55)
[2016-06-08 04:14] VITALS: BP 104/62
[2016-06-08 08:12] VITALS: BP 100/61
[2016-06-08] MEDS: NICOTINE 21 MG/24 HOUR PATCH TD SCH (08:55)
[2016-06-08] MEDS: CloZAPine 100 MG TABLET PO SCH ×2 (08:55→20:43)
[2016-06-08] MEDS: MULTIVITAMINS WITH MINERALS, THERAPEUTIC TABLET PO SCH (08:55)
[2016-06-08 16:12] VITALS: BP 122/73
[2016-06-08] MEDS: DIVALPROEX SODIUM 500 MG ER TABLET PO SCH (20:42)
[2016-06-09 00:02] VITALS: BP 107/67
[2016-06-09 08:02] VITALS: BP 104/58
[2016-06-09] MEDS: CloZAPine 100 MG TABLET PO SCH ×2 (08:50→20:39)
[2016-06-09] MEDS: MULTIVITAMINS WITH MINERALS, THERAPEUTIC TABLET PO SCH (08:50)
[2016-06-09] MEDS: NICOTINE 21 MG/24 HOUR PATCH TD SCH (08:51)
[2016-06-09 16:10] VITALS: BP 114/62
[2016-06-09] MEDS: DIVALPROEX SODIUM 500 MG ER TABLET PO SCH (20:39)
[2016-06-10 00:40] VITALS: BP 118/69
[2016-06-10 08:14] VITALS: BP 119/45
[2016-06-10] MEDS: MULTIVITAMINS WITH MINERALS, THERAPEUTIC TABLET PO SCH (08:38)
[2016-06-10] MEDS: CloZAPine 100 MG TABLET PO SCH ×2 (08:38→20:21)
[2016-06-10] MEDS: NICOTINE 21 MG/24 HOUR PATCH TD SCH (08:39)
[2016-06-10 09:30] VITALS: BP 110/62
[2016-06-10 16:02] VITALS: BP 113/82
[2016-06-10] MEDS: DIVALPROEX SODIUM 500 MG ER TABLET PO SCH (20:21)
[2016-06-11 00:04] VITALS: BP 102/60
[2016-06-11 08:25] VITALS: BP 102/62
[2016-06-11] MEDS: NICOTINE 21 MG/24 HOUR PATCH TD SCH (09:04)
[2016-06-11] MEDS: CloZAPine 100 MG TABLET PO SCH ×2 (09:04→20:38)
[2016-06-11] MEDS: MULTIVITAMINS WITH MINERALS, THERAPEUTIC TABLET PO SCH (09:04)
[2016-06-11 16:06] VITALS: BP 122/77
[2016-06-11] MEDS: DIVALPROEX SODIUM 500 MG ER TABLET PO SCH (20:38)
[2016-06-12 00:52] VITALS: BP 110/67
[2016-06-12 08:17] LABS: BASOPHILS % (AUTO) 0.2 % (0.0-2.0); EOSINOPHILS % (AUTO) 3.8 % (1.0-6.0); HEMATOCRIT 37.8 % (36-46); HEMOGLOBIN 13.1 g/dL (12.0-16.0); LYMPHOCYTES # (AUTO) 4.3 K/uL (1.0-4.8); LYMPHOCYTES % (AUTO) 40.7 % (22.0-44.0); MEAN CORPUSCULAR HEMOGLOBIN 29.4 pg (26.0-34.0); MEAN CORPUSCULAR HGB CONC 34.5 G/dL (31.0-37.0); MEAN CORPUSCULAR VOLUME 85 fL (80-100); MONOCYTES % (AUTO) 9.3 % (2.0-9.0); NEUTROPHILS # (AUTO) 4.9 K/uL (1.8-7.7); PLATELET COUNT (AUTO) 332 K/uL (150-450); RED BLOOD CELL COUNT(AUTO) 4.45 MIL/uL (4.00-5.20); RED CELL DISTRIBUTION WIDTH 13.1 % (11.5-14.5); WHITE BLOOD COUNT (AUTO) 10.7 K/uL (4.5-11.0)
[2016-06-12 08:26] VITALS: BP 110/61
[2016-06-12] MEDS: NICOTINE 21 MG/24 HOUR PATCH TD SCH (08:30)
[2016-06-12] MEDS: CloZAPine 100 MG TABLET PO SCH ×2 (08:30→20:33)
[2016-06-12] MEDS: MULTIVITAMINS WITH MINERALS, THERAPEUTIC TABLET PO SCH (08:30)
[2016-06-12 16:09] VITALS: BP 119/73
[2016-06-12] MEDS: DIVALPROEX SODIUM 500 MG ER TABLET PO SCH (20:32)
[2016-06-13 02:58] VITALS: BP 123/75
[2016-06-13 08:40] VITALS: BP 108/70
[2016-06-13] MEDS: NICOTINE 21 MG/24 HOUR PATCH TD SCH (09:36)
[2016-06-13] MEDS: MULTIVITAMINS WITH MINERALS, THERAPEUTIC TABLET PO SCH (09:36)
[2016-06-13] MEDS: CloZAPine 100 MG TABLET PO SCH ×2 (09:36→20:45)
[2016-06-13 16:07] VITALS: BP 130/76
[2016-06-13] MEDS: DIVALPROEX SODIUM 500 MG ER TABLET PO SCH (20:44)
[2016-06-14 02:48] VITALS: BP 125/77
[2016-06-14 08:17] VITALS: BP 122/67
[2016-06-14] MEDS: MULTIVITAMINS WITH MINERALS, THERAPEUTIC TABLET PO SCH (09:35)
[2016-06-14] MEDS: NICOTINE 21 MG/24 HOUR PATCH TD SCH (09:35)
[2016-06-14] MEDS: CloZAPine 100 MG TABLET PO SCH ×2 (09:35→20:41)
[2016-06-14 16:07] VITALS: BP 121/76
[2016-06-14] MEDS: DIVALPROEX SODIUM 500 MG ER TABLET PO SCH (20:41)
[2016-06-15 04:34] VITALS: BP 123/81
[2016-06-15 08:02] VITALS: BP 95/57
[2016-06-15] MEDS: CloZAPine 100 MG TABLET PO SCH ×2 (08:49→20:32)
[2016-06-15] MEDS: MULTIVITAMINS WITH MINERALS, THERAPEUTIC TABLET PO SCH (08:49)
[2016-06-15] MEDS: NICOTINE 21 MG/24 HOUR PATCH TD SCH (08:50)
[2016-06-15 10:07] VITALS: BP 128/82
[2016-06-15 16:00] VITALS: BP 112/74
[2016-06-15] MEDS: DIVALPROEX SODIUM 500 MG ER TABLET PO SCH (20:32)
[2016-06-16 00:36] VITALS: BP 110/62
[2016-06-16 08:32] VITALS: BP 106/63
[2016-06-16] MEDS: NICOTINE 21 MG/24 HOUR PATCH TD SCH (08:47)
[2016-06-16] MEDS: CloZAPine 100 MG TABLET PO SCH ×2 (08:47→20:37)
[2016-06-16] MEDS: MULTIVITAMINS WITH MINERALS, THERAPEUTIC TABLET PO SCH (08:47)
[2016-06-16 16:03] VITALS: BP 125/77
[2016-06-16] MEDS: DIVALPROEX SODIUM 500 MG ER TABLET PO SCH (20:37)
[2016-06-17 00:11] VITALS: BP 109/69
[2016-06-17 07:30] VITALS: BP 108/61
[2016-06-17 08:00] VITALS: BP 108/61
[2016-06-17] MEDS: CloZAPine 100 MG TABLET PO SCH ×2 (08:47→20:36)
[2016-06-17] MEDS: NICOTINE 21 MG/24 HOUR PATCH TD SCH (08:47)
[2016-06-17] MEDS: MULTIVITAMINS WITH MINERALS, THERAPEUTIC TABLET PO SCH (08:47)
[2016-06-17 16:08] VITALS: BP 121/76
[2016-06-17] MEDS: DIVALPROEX SODIUM 500 MG ER TABLET PO SCH (20:36)
[2016-06-18 06:56] VITALS: BP 111/65
[2016-06-18 08:42] VITALS: BP 105/62
[2016-06-18] MEDS: MULTIVITAMINS WITH MINERALS, THERAPEUTIC TABLET PO SCH (09:19)
[2016-06-18] MEDS: NICOTINE 21 MG/24 HOUR PATCH TD SCH (09:19)
[2016-06-18] MEDS: CloZAPine 100 MG TABLET PO SCH ×2 (09:19→20:30)
[2016-06-18 16:02] VITALS: BP 124/64
[2016-06-18] MEDS: DIVALPROEX SODIUM 500 MG ER TABLET PO SCH (20:30)
[2016-06-19 00:57] VITALS: BP 113/60
[2016-06-19 08:11] VITALS: BP 103/66
[2016-06-19 08:26] LABS: BASOPHILS # (AUTO) 0.02 K/uL (0.00-0.20); BASOPHILS % (AUTO) 0.3 % (0.0-2.0); EOSINOPHILS # (AUTO) 0.32 K/uL (0.00-0.70); EOSINOPHILS % (AUTO) 3.52 % (1.0-6.0); HEMATOCRIT 42.1 % (36-46); HEMOGLOBIN 14.1 g/dL (12.0-16.0); LYMPHOCYTES # (AUTO) 3.8 K/uL (1.0-4.8); LYMPHOCYTES % (AUTO) 42.4 % (22.0-44.0); MEAN CORPUSCULAR HEMOGLOBIN 28.9 pg (26.0-34.0); MEAN CORPUSCULAR HGB CONC 33.5 G/dL (31.0-37.0); MEAN CORPUSCULAR VOLUME 86 fL (80-100); NEUTROPHILS # (AUTO) 3.9 K/uL (1.8-7.7); NEUTROPHILS % (AUTO) 42.9 % (40.0-70.0); PLATELET COUNT (AUTO) 292 K/uL (150-450); RED BLOOD CELL COUNT(AUTO) 4.88 MIL/uL (4.00-5.20); RED CELL DISTRIBUTION WIDTH 14.1 % (11.5-14.5); WHITE BLOOD COUNT (AUTO) 9.1 K/uL (4.5-11.0)
[2016-06-19] MEDS: MULTIVITAMINS WITH MINERALS, THERAPEUTIC TABLET PO SCH (08:33)
[2016-06-19] MEDS: NICOTINE 21 MG/24 HOUR PATCH TD SCH (08:33)
[2016-06-19] MEDS: CloZAPine 100 MG TABLET PO SCH ×2 (08:33→20:22)
[2016-06-19 16:19] VITALS: BP 120/80
[2016-06-19] MEDS: DIVALPROEX SODIUM 500 MG ER TABLET PO SCH (20:22)
[2016-06-20 00:01] VITALS: BP 108/67
[2016-06-20 08:02] VITALS: BP 134/69
[2016-06-20] MEDS: MULTIVITAMINS WITH MINERALS, THERAPEUTIC TABLET PO SCH (09:01)
[2016-06-20] MEDS: CloZAPine 100 MG TABLET PO SCH ×2 (09:01→20:33)
[2016-06-20] MEDS: NICOTINE 21 MG/24 HOUR PATCH TD SCH (09:02)
[2016-06-20 16:01] VITALS: BP 131/72
[2016-06-20 16:53] VITALS: BP 131/72
[2016-06-20] MEDS: DIVALPROEX SODIUM 500 MG ER TABLET PO SCH (20:33)
[2016-06-21 00:01] VITALS: BP 104/69
[2016-06-21 08:05] VITALS: BP 136/80
[2016-06-21] MEDS: MULTIVITAMINS WITH MINERALS, THERAPEUTIC TABLET PO SCH (08:38)
[2016-06-21] MEDS: NICOTINE 21 MG/24 HOUR PATCH TD SCH (08:38)
[2016-06-21] MEDS: CloZAPine 100 MG TABLET PO SCH ×2 (08:38→20:36)
[2016-06-21 16:10] VITALS: BP 132/74
[2016-06-21] MEDS: MAGNESIUM HYDROXIDE SUSPENSION 30 ML UDCUP PO PRN (16:27)
[2016-06-21] MEDS: DIVALPROEX SODIUM 500 MG ER TABLET PO SCH (20:37)
[2016-06-22 06:32] VITALS: BP 108/74
[2016-06-22 08:22] VITALS: BP 101/63
[2016-06-22] MEDS: CloZAPine 100 MG TABLET PO SCH ×2 (08:25→20:34)
[2016-06-22] MEDS: MULTIVITAMINS WITH MINERALS, THERAPEUTIC TABLET PO SCH (08:25)
[2016-06-22] MEDS: NICOTINE 21 MG/24 HOUR PATCH TD SCH (08:58)
[2016-06-22 16:05] VITALS: BP 108/67
[2016-06-22] MEDS: DIVALPROEX SODIUM 500 MG ER TABLET PO SCH (20:34)
[2016-06-22] MEDS: TOPIRAMATE 25 MG TABLET PO SCH (20:34)
[2016-06-23 00:05] VITALS: BP 105/60
[2016-06-23 08:11] VITALS: BP 116/62
[2016-06-23] MEDS: CloZAPine 100 MG TABLET PO SCH ×2 (09:31→20:43)
[2016-06-23] MEDS: NICOTINE 21 MG/24 HOUR PATCH TD SCH (09:31)
[2016-06-23] MEDS: MULTIVITAMINS WITH MINERALS, THERAPEUTIC TABLET PO SCH (09:31)
[2016-06-23 16:02] VITALS: BP 136/72
[2016-06-23] MEDS: DIVALPROEX SODIUM 500 MG ER TABLET PO SCH (20:43)
[2016-06-23] MEDS: TOPIRAMATE 25 MG TABLET PO SCH (20:45)
[2016-06-24 05:11] VITALS: BP 105/56
[2016-06-24 08:01] VITALS: BP 110/62
[2016-06-24] MEDS: CloZAPine 100 MG TABLET PO SCH ×2 (08:13→20:15)
[2016-06-24] MEDS: MULTIVITAMINS WITH MINERALS, THERAPEUTIC TABLET PO SCH (08:13)
[2016-06-24] MEDS: NICOTINE 21 MG/24 HOUR PATCH TD SCH (08:14)
[2016-06-24 16:07] VITALS: BP 125/73
[2016-06-24] MEDS: DIVALPROEX SODIUM 500 MG ER TABLET PO SCH (20:15)
[2016-06-24] MEDS: TOPIRAMATE 25 MG TABLET PO SCH (20:15)
[2016-06-25 00:41] VITALS: BP 110/68
[2016-06-25 08:02] VITALS: BP 110/59
[2016-06-25] MEDS: MULTIVITAMINS WITH MINERALS, THERAPEUTIC TABLET PO SCH (08:39)
[2016-06-25] MEDS: NICOTINE 21 MG/24 HOUR PATCH TD SCH (08:39)
[2016-06-25] MEDS: CloZAPine 100 MG TABLET PO SCH ×2 (08:39→20:33)
[2016-06-25 16:11] VITALS: BP 124/88
[2016-06-25 18:46] VITALS: BP 128/83
[2016-06-25] MEDS: DIVALPROEX SODIUM 500 MG ER TABLET PO SCH (20:33)
[2016-06-25] MEDS: TOPIRAMATE 25 MG TABLET PO SCH (20:33)
[2016-06-26 05:52] VITALS: BP 115/80
[2016-06-26 08:19] VITALS: BP 117/78
[2016-06-26 08:36] LABS: BASOPHILS # (AUTO) 0.04 K/uL (0.00-0.20); BASOPHILS % (AUTO) 0.4 % (0.0-2.0); EOSINOPHILS # (AUTO) 0.41 K/uL (0.00-0.70); EOSINOPHILS % (AUTO) 4.24 % (1.0-6.0); HEMATOCRIT 40.7 % (36-46); HEMOGLOBIN 13.5 g/dL (12.0-16.0); LYMPHOCYTES # (AUTO) 4.1 K/uL (1.0-4.8); LYMPHOCYTES % (AUTO) 42.5 % (22.0-44.0); MEAN CORPUSCULAR HEMOGLOBIN 28.5 pg (26.0-34.0); MEAN CORPUSCULAR HGB CONC 33.2 G/dL (31.0-37.0); MEAN CORPUSCULAR VOLUME 86 fL (80-100); MONOCYTES % (AUTO) 10.7 % (2.0-9.0); NEUTROPHILS # (AUTO) 4.1 K/uL (1.8-7.7); NEUTROPHILS % (AUTO) 42.2 % (40.0-70.0); PLATELET COUNT (AUTO) 366 K/uL (150-450); RED BLOOD CELL COUNT(AUTO) 4.74 MIL/uL (4.00-5.20); RED CELL DISTRIBUTION WIDTH 13.8 % (11.5-14.5); WHITE BLOOD COUNT (AUTO) 9.7 K/uL (4.5-11.0)
[2016-06-26] MEDS: CloZAPine 100 MG TABLET PO SCH ×2 (08:49→20:32)
[2016-06-26] MEDS: MULTIVITAMINS WITH MINERALS, THERAPEUTIC TABLET PO SCH (08:49)
[2016-06-26] MEDS: NICOTINE 21 MG/24 HOUR PATCH TD SCH (08:50)
[2016-06-26 16:20] VITALS: BP 126/80
[2016-06-26] MEDS: DIVALPROEX SODIUM 500 MG ER TABLET PO SCH (20:32)
[2016-06-26] MEDS: TOPIRAMATE 25 MG TABLET PO SCH (20:33)
[2016-06-27 00:10] VITALS: BP 118/69
[2016-06-27] MEDS: NICOTINE 21 MG/24 HOUR PATCH TD SCH (08:26)
[2016-06-27] MEDS: CloZAPine 100 MG TABLET PO SCH ×2 (08:26→20:22)
[2016-06-27] MEDS: MULTIVITAMINS WITH MINERALS, THERAPEUTIC TABLET PO SCH (08:26)
[2016-06-27 16:03] VITALS: BP 135/82
[2016-06-27] MEDS: DIVALPROEX SODIUM 500 MG ER TABLET PO SCH (20:22)
[2016-06-27] MEDS: TOPIRAMATE 25 MG TABLET PO SCH (20:23)
[2016-06-28 00:02] VITALS: BP 106/61
[2016-06-28 08:30] VITALS: BP 115/64
[2016-06-28] MEDS: NICOTINE 21 MG/24 HOUR PATCH TD SCH (08:30)
[2016-06-28] MEDS: MULTIVITAMINS WITH MINERALS, THERAPEUTIC TABLET PO SCH (08:30)
[2016-06-28] MEDS: CloZAPine 100 MG TABLET PO SCH ×2 (08:30→20:29)
[2016-06-28 16:08] VITALS: BP 119/64
[2016-06-28] MEDS: DIVALPROEX SODIUM 500 MG ER TABLET PO SCH (20:28)
[2016-06-28] MEDS: TOPIRAMATE 25 MG TABLET PO SCH (20:30)
[2016-06-29 00:12] VITALS: BP 118/70
[2016-06-29 08:19] VITALS: BP 110/65
[2016-06-29] MEDS: MULTIVITAMINS WITH MINERALS, THERAPEUTIC TABLET PO SCH (08:32)
[2016-06-29] MEDS: CloZAPine 100 MG TABLET PO SCH ×2 (08:32→20:38)
[2016-06-29] MEDS: NICOTINE 21 MG/24 HOUR PATCH TD SCH (08:32)
[2016-06-29 16:07] VITALS: BP 131/76
[2016-06-29] MEDS: DIVALPROEX SODIUM 500 MG ER TABLET PO SCH (20:38)
[2016-06-29] MEDS: TOPIRAMATE 25 MG TABLET PO SCH (20:38)
[2016-06-30 01:03] VITALS: BP 110/61
[2016-06-30 08:08] VITALS: BP 109/64
[2016-06-30] MEDS: MULTIVITAMINS WITH MINERALS, THERAPEUTIC TABLET PO SCH (08:19)
[2016-06-30] MEDS: NICOTINE 21 MG/24 HOUR PATCH TD SCH (08:19)
[2016-06-30] MEDS: CloZAPine 100 MG TABLET PO SCH ×2 (08:19→20:31)
[2016-06-30 16:09] VITALS: BP 119/77
[2016-06-30] MEDS: TOPIRAMATE 25 MG TABLET PO SCH (20:31)
[2016-06-30] MEDS: DIVALPROEX SODIUM 500 MG ER TABLET PO SCH (20:32)
[2016-07-01 04:06] VITALS: BP 110/60
[2016-07-01] MEDS: MULTIVITAMINS WITH MINERALS, THERAPEUTIC TABLET PO SCH (08:25)
[2016-07-01] MEDS: NICOTINE 21 MG/24 HOUR PATCH TD SCH (08:25)
[2016-07-01] MEDS: CloZAPine 100 MG TABLET PO SCH ×2 (08:25→20:32)
[2016-07-01 16:07] VITALS: BP 106/63
[2016-07-01] MEDS: DIVALPROEX SODIUM 500 MG ER TABLET PO SCH (20:32)
[2016-07-01] MEDS: TOPIRAMATE 25 MG TABLET PO SCH (20:32)
[2016-07-02 02:54] VITALS: BP 109/66
[2016-07-02 08:12] VITALS: BP 103/67
[2016-07-02] MEDS: NICOTINE 21 MG/24 HOUR PATCH TD SCH (09:00)
[2016-07-02] MEDS: CloZAPine 100 MG TABLET PO SCH ×2 (09:00→20:36)
[2016-07-02] MEDS: MULTIVITAMINS WITH MINERALS, THERAPEUTIC TABLET PO SCH (09:00)
[2016-07-02 16:19] VITALS: BP 129/69
[2016-07-02] MEDS: DIVALPROEX SODIUM 500 MG ER TABLET PO SCH (20:36)
[2016-07-02] MEDS: TOPIRAMATE 25 MG TABLET PO SCH (20:36)
[2016-07-03 03:52] VITALS: BP 123/69
[2016-07-03] MEDS: NICOTINE 21 MG/24 HOUR PATCH TD SCH (08:36)
[2016-07-03] MEDS: CloZAPine 100 MG TABLET PO SCH ×2 (08:36→21:28)
[2016-07-03] MEDS: MULTIVITAMINS WITH MINERALS, THERAPEUTIC TABLET PO SCH (08:36)
[2016-07-03 09:15] LABS: BASOPHILS % (AUTO) 0.3 % (0.0-2.0); EOSINOPHILS % (AUTO) 3.2 % (1.0-6.0); HEMATOCRIT 37.4 % (36-46); HEMOGLOBIN 12.9 g/dL (12.0-16.0); LYMPHOCYTES # (AUTO) 4.5 K/uL (1.0-4.8); LYMPHOCYTES % (AUTO) 41.9 % (22.0-44.0); MEAN CORPUSCULAR HEMOGLOBIN 28.6 pg (26.0-34.0); MEAN CORPUSCULAR HGB CONC 34.5 G/dL (31.0-37.0); MEAN CORPUSCULAR VOLUME 83 fL (80-100); MONOCYTES % (AUTO) 9.6 % (2.0-9.0); NEUTROPHILS # (AUTO) 4.9 K/uL (1.8-7.7); PLATELET COUNT (AUTO) 343 K/uL (150-450); RED BLOOD CELL COUNT(AUTO) 4.51 MIL/uL (4.00-5.20); RED CELL DISTRIBUTION WIDTH 12.8 % (11.5-14.5); WHITE BLOOD COUNT (AUTO) 10.8 K/uL (4.5-11.0)
[2016-07-03 09:18] VITALS: BP 110/64
[2016-07-03 16:02] VITALS: BP 107/63
[2016-07-03] MEDS: DIVALPROEX SODIUM 500 MG ER TABLET PO SCH (21:26)
[2016-07-03] MEDS: TOPIRAMATE 25 MG TABLET PO SCH (21:29)
[2016-07-04 00:02] VITALS: BP 109/64
[2016-07-04 08:59] VITALS: BP 109/63
[2016-07-04] MEDS: MULTIVITAMINS WITH MINERALS, THERAPEUTIC TABLET PO SCH (09:13)
[2016-07-04] MEDS: CloZAPine 100 MG TABLET PO SCH ×2 (09:13→20:37)
[2016-07-04] MEDS: NICOTINE 21 MG/24 HOUR PATCH TD SCH (09:14)
[2016-07-04 16:02] VITALS: BP 120/74
[2016-07-04] MEDS: DIVALPROEX SODIUM 500 MG ER TABLET PO SCH (20:36)
[2016-07-04] MEDS: TOPIRAMATE 25 MG TABLET PO SCH (20:36)
[2016-07-05 00:10] VITALS: BP 106/60
[2016-07-05 08:19] VITALS: BP 109/62
[2016-07-05] MEDS: MULTIVITAMINS WITH MINERALS, THERAPEUTIC TABLET PO SCH (08:57)
[2016-07-05] MEDS: CloZAPine 100 MG TABLET PO SCH ×2 (08:57→20:33)
[2016-07-05] MEDS: NICOTINE 21 MG/24 HOUR PATCH TD SCH (08:58)
[2016-07-05 16:08] VITALS: BP 130/78
[2016-07-05] MEDS: TOPIRAMATE 25 MG TABLET PO SCH (20:33)
[2016-07-05] MEDS: DIVALPROEX SODIUM 500 MG ER TABLET PO SCH (20:34)
[2016-07-06 01:59] VITALS: BP 113/69
[2016-07-06 08:27] VITALS: BP 110/66
[2016-07-06] MEDS: MULTIVITAMINS WITH MINERALS, THERAPEUTIC TABLET PO SCH (08:51)
[2016-07-06] MEDS: CloZAPine 100 MG TABLET PO SCH ×2 (08:51→20:34)
[2016-07-06] MEDS: NICOTINE 21 MG/24 HOUR PATCH TD SCH (08:51)
[2016-07-06 16:02] VITALS: BP 112/85
[2016-07-06] MEDS: DIVALPROEX SODIUM 500 MG ER TABLET PO SCH (20:34)
[2016-07-06] MEDS: TOPIRAMATE 25 MG TABLET PO SCH (20:35)
[2016-07-07 04:18] VITALS: BP 127/77
[2016-07-07 08:49] VITALS: BP 112/60
[2016-07-07] MEDS: NICOTINE 21 MG/24 HOUR PATCH TD SCH (09:31)
[2016-07-07] MEDS: CloZAPine 100 MG TABLET PO SCH ×2 (09:31→20:29)
[2016-07-07] MEDS: MULTIVITAMINS WITH MINERALS, THERAPEUTIC TABLET PO SCH (09:31)
[2016-07-07 16:00] VITALS: BP 120/79
[2016-07-07] MEDS: DIVALPROEX SODIUM 500 MG ER TABLET PO SCH (20:29)
[2016-07-07] MEDS: TOPIRAMATE 25 MG TABLET PO SCH (20:29)
[2016-07-08 05:21] VITALS: BP 126/74
[2016-07-08 08:33] VITALS: BP 112/62
[2016-07-08] MEDS: CloZAPine 100 MG TABLET PO SCH ×2 (09:09→20:31)
[2016-07-08] MEDS: NICOTINE 21 MG/24 HOUR PATCH TD SCH (09:09)
[2016-07-08] MEDS: MULTIVITAMINS WITH MINERALS, THERAPEUTIC TABLET PO SCH (09:09)
[2016-07-08 16:01] VITALS: BP 123/76
[2016-07-08] MEDS: DIVALPROEX SODIUM 500 MG ER TABLET PO SCH (20:31)
[2016-07-08] MEDS: TOPIRAMATE 25 MG TABLET PO SCH (20:31)
[2016-07-09 00:52] VITALS: BP 106/62
[2016-07-09 08:31] VITALS: BP 106/66
[2016-07-09] MEDS: MULTIVITAMINS WITH MINERALS, THERAPEUTIC TABLET PO SCH (08:49)
[2016-07-09] MEDS: NICOTINE 21 MG/24 HOUR PATCH TD SCH (08:49)
[2016-07-09] MEDS: CloZAPine 100 MG TABLET PO SCH ×2 (08:49→20:34)
[2016-07-09 16:03] VITALS: BP 116/63
[2016-07-09] MEDS: TOPIRAMATE 25 MG TABLET PO SCH (20:34)
[2016-07-09] MEDS: DIVALPROEX SODIUM 500 MG ER TABLET PO SCH (20:35)
[2016-07-10 00:39] VITALS: BP 104/67
[2016-07-10 08:11] LABS: BASOPHILS % (AUTO) 0.3 % (0.0-2.0); EOSINOPHILS % (AUTO) 2.5 % (1.0-6.0); HEMOGLOBIN 14.8 g/dL (12.0-16.0); LYMPHOCYTES # (AUTO) 4.8 K/uL (1.0-4.8); MEAN CORPUSCULAR HGB CONC 35.2 G/dL (31.0-37.0); MEAN CORPUSCULAR VOLUME 82 fL (80-100); MONOCYTES # (AUTO) 0.9 K/uL (0.1-1.0); MONOCYTES % (AUTO) 7.1 % (2.0-9.0); NEUTROPHILS # (AUTO) 7.2 K/uL (1.8-7.7); NEUTROPHILS % (AUTO) 54.1 % (40.0-70.0); PLATELET COUNT (AUTO) 334 K/uL (150-450); RED CELL DISTRIBUTION WIDTH 12.8 % (11.5-14.5); WHITE BLOOD COUNT (AUTO) 13.3 K/uL (4.5-11.0)
[2016-07-10 08:24] VITALS: BP 116/66
[2016-07-10] MEDS: MULTIVITAMINS WITH MINERALS, THERAPEUTIC TABLET PO SCH (08:56)
[2016-07-10] MEDS: CloZAPine 100 MG TABLET PO SCH ×2 (08:56→20:31)
[2016-07-10] MEDS: NICOTINE 21 MG/24 HOUR PATCH TD SCH (08:59)
[2016-07-10 16:00] VITALS: BP 122/79
[2016-07-10] MEDS: TOPIRAMATE 25 MG TABLET PO SCH (20:31)
[2016-07-10] MEDS: DIVALPROEX SODIUM 500 MG ER TABLET PO SCH (20:32)
[2016-07-11 00:47] VITALS: BP 107/60
[2016-07-11 08:15] VITALS: BP 110/64
[2016-07-11] MEDS: MULTIVITAMINS WITH MINERALS, THERAPEUTIC TABLET PO SCH (08:24)
[2016-07-11] MEDS: CloZAPine 100 MG TABLET PO SCH ×2 (08:24→20:47)
[2016-07-11] MEDS: NICOTINE 21 MG/24 HOUR PATCH TD SCH (08:29)
[2016-07-11 08:49] LABS: BASOPHILS % (AUTO) 0.2 % (0.0-2.0); EOSINOPHILS % (AUTO) 2.5 % (1.0-6.0); HEMATOCRIT 40.6 % (36-46); HEMOGLOBIN 14.2 g/dL (12.0-16.0); LYMPHOCYTES # (AUTO) 4.2 K/uL (1.0-4.8); LYMPHOCYTES % (AUTO) 43.5 % (22.0-44.0); MEAN CORPUSCULAR HEMOGLOBIN 28.8 pg (26.0-34.0); MEAN CORPUSCULAR HGB CONC 35.1 G/dL (31.0-37.0); MEAN CORPUSCULAR VOLUME 82 fL (80-100); MONOCYTES # (AUTO) 0.5 K/uL (0.1-1.0); MONOCYTES % (AUTO) 5.6 % (2.0-9.0); NEUTROPHILS # (AUTO) 4.7 K/uL (1.8-7.7); NEUTROPHILS % (AUTO) 48.2 % (40.0-70.0); PLATELET COUNT (AUTO) 302 K/uL (150-450); RED BLOOD CELL COUNT(AUTO) 4.95 MIL/uL (4.00-5.20); RED CELL DISTRIBUTION WIDTH 12.9 % (11.5-14.5); WHITE BLOOD COUNT (AUTO) 9.8 K/uL (4.5-11.0)
[2016-07-11 16:00] VITALS: BP 120/60
[2016-07-11] MEDS: TOPIRAMATE 25 MG TABLET PO SCH (20:46)
[2016-07-11] MEDS: DIVALPROEX SODIUM 500 MG ER TABLET PO SCH (20:46)
[2016-07-12 04:16] VITALS: BP 126/76
[2016-07-12] MEDS: CloZAPine 100 MG TABLET PO SCH ×2 (09:39→21:43)
[2016-07-12] MEDS: MULTIVITAMINS WITH MINERALS, THERAPEUTIC TABLET PO SCH (09:39)
[2016-07-12] MEDS: NICOTINE 21 MG/24 HOUR PATCH TD SCH (09:39)
[2016-07-12 16:09] VITALS: BP 125/77
[2016-07-12] MEDS: DIVALPROEX SODIUM 500 MG ER TABLET PO SCH (21:42)
[2016-07-12] MEDS: TOPIRAMATE 25 MG TABLET PO SCH (21:42)
[2016-07-13 05:45] VITALS: BP 104/54
[2016-07-13] MEDS: MULTIVITAMINS WITH MINERALS, THERAPEUTIC TABLET PO SCH (09:28)
[2016-07-13] MEDS: NICOTINE 21 MG/24 HOUR PATCH TD SCH (09:28)
[2016-07-13] MEDS: CloZAPine 100 MG TABLET PO SCH ×2 (09:28→20:14)
[2016-07-13 16:01] VITALS: BP 140/79
[2016-07-13] MEDS: DIVALPROEX SODIUM 500 MG ER TABLET PO SCH (20:14)
[2016-07-13] MEDS: TOPIRAMATE 25 MG TABLET PO SCH (20:14)
[2016-07-14 00:02] VITALS: BP 104/62
[2016-07-14] MEDS: CloZAPine 100 MG TABLET PO SCH ×2 (09:48→20:53)
[2016-07-14] MEDS: MULTIVITAMINS WITH MINERALS, THERAPEUTIC TABLET PO SCH (09:48)
[2016-07-14] MEDS: NICOTINE 21 MG/24 HOUR PATCH TD SCH (09:48)
[2016-07-14 16:04] VITALS: BP 116/73
[2016-07-14] MEDS: DIVALPROEX SODIUM 500 MG ER TABLET PO SCH (20:53)
[2016-07-14] MEDS: TOPIRAMATE 25 MG TABLET PO SCH (20:54)
[2016-07-15 06:13] VITALS: BP 102/60
[2016-07-15] MEDS: MULTIVITAMINS WITH MINERALS, THERAPEUTIC TABLET PO SCH (08:36)
[2016-07-15] MEDS: NICOTINE 21 MG/24 HOUR PATCH TD SCH (08:36)
[2016-07-15] MEDS: CloZAPine 100 MG TABLET PO SCH ×2 (08:36→19:19)
[2016-07-15 16:12] VITALS: BP 119/75
[2016-07-15] MEDS: DIVALPROEX SODIUM 500 MG ER TABLET PO SCH (19:19)
[2016-07-15] MEDS: TOPIRAMATE 25 MG TABLET PO SCH (19:19)
[2016-07-16 06:04] VITALS: BP 101/68
[2016-07-16] MEDS: CloZAPine 100 MG TABLET PO SCH ×2 (08:29→20:20)
[2016-07-16] MEDS: MULTIVITAMINS WITH MINERALS, THERAPEUTIC TABLET PO SCH (08:29)
[2016-07-16] MEDS: NICOTINE 21 MG/24 HOUR PATCH TD SCH (08:29)
[2016-07-16 16:10] VITALS: BP 128/81
[2016-07-16] MEDS: TOPIRAMATE 25 MG TABLET PO SCH (20:19)
[2016-07-16] MEDS: DIVALPROEX SODIUM 500 MG ER TABLET PO SCH (20:19)
[2016-07-17 02:25] VITALS: BP 100/69
[2016-07-17] MEDS: MULTIVITAMINS WITH MINERALS, THERAPEUTIC TABLET PO SCH (08:40)
[2016-07-17] MEDS: CloZAPine 100 MG TABLET PO SCH ×2 (08:40→20:12)
[2016-07-17] MEDS: NICOTINE 21 MG/24 HOUR PATCH TD SCH ×2 (09:00→09:09)
[2016-07-17 16:00] VITALS: BP 108/71
[2016-07-17] MEDS: DIVALPROEX SODIUM 500 MG ER TABLET PO SCH (20:11)
[2016-07-17] MEDS: TOPIRAMATE 25 MG TABLET PO SCH (20:11)
[2016-07-18 07:07] VITALS: BP 121/73
[2016-07-18 08:18] LABS: BASOPHILS # (AUTO) 0.04 K/uL (0.00-0.20); BASOPHILS % (AUTO) 0.3 % (0.0-2.0); EOSINOPHILS # (AUTO) 0.24 K/uL (0.00-0.70); EOSINOPHILS % (AUTO) 2.17 % (1.0-6.0); HEMATOCRIT 38.7 % (36-46); HEMOGLOBIN 13.6 g/dL (12.0-16.0); LYMPHOCYTES # (AUTO) 4.1 K/uL (1.0-4.8); LYMPHOCYTES % (AUTO) 37.5 % (22.0-44.0); MEAN CORPUSCULAR HEMOGLOBIN 29.3 pg (26.0-34.0); MEAN CORPUSCULAR HGB CONC 35.3 G/dL (31.0-37.0); MEAN CORPUSCULAR VOLUME 83 fL (80-100); MONOCYTES # (AUTO) 1.1 K/uL (0.1-1.0); MONOCYTES % (AUTO) 10.1 % (2.0-9.0); NEUTROPHILS # (AUTO) 5.5 K/uL (1.8-7.7); PLATELET COUNT (AUTO) 321 K/uL (150-450); RED BLOOD CELL COUNT(AUTO) 4.65 MIL/uL (4.00-5.20); RED CELL DISTRIBUTION WIDTH 12.6 % (11.5-14.5); WHITE BLOOD COUNT (AUTO) 10.9 K/uL (4.5-11.0)
[2016-07-18] MEDS: CloZAPine 100 MG TABLET PO SCH ×2 (08:28→20:12)
[2016-07-18] MEDS: MULTIVITAMINS WITH MINERALS, THERAPEUTIC TABLET PO SCH (08:28)
[2016-07-18] MEDS: NICOTINE 21 MG/24 HOUR PATCH TD SCH (08:28)
[2016-07-18 16:29] VITALS: BP 136/67
[2016-07-18] MEDS: TOPIRAMATE 25 MG TABLET PO SCH (20:12)
[2016-07-18] MEDS: DIVALPROEX SODIUM 500 MG ER TABLET PO SCH (20:12)
[2016-07-19 00:02] VITALS: BP 103/64
[2016-07-19 08:03] VITALS: BP 135/81
[2016-07-19] MEDS: MULTIVITAMINS WITH MINERALS, THERAPEUTIC TABLET PO SCH (08:28)
[2016-07-19] MEDS: CloZAPine 100 MG TABLET PO SCH ×2 (08:28→20:19)
[2016-07-19] MEDS: NICOTINE 21 MG/24 HOUR PATCH TD SCH (08:29)
[2016-07-19 16:26] VITALS: BP 141/67
[2016-07-19] MEDS: LORazepam 2 MG TABLET PO PRN (18:32)
[2016-07-19] MEDS: DIVALPROEX SODIUM 500 MG ER TABLET PO SCH (20:19)
[2016-07-19] MEDS: TOPIRAMATE 25 MG TABLET PO SCH (20:20)
[2016-07-19 22:14] VITALS: BP 125/69
[2016-07-20 00:30] VITALS: BP 116/71
[2016-07-20] MEDS: CloZAPine 100 MG TABLET PO SCH ×2 (08:30→20:03)
[2016-07-20] MEDS: NICOTINE 21 MG/24 HOUR PATCH TD SCH (08:30)
[2016-07-20] MEDS: MULTIVITAMINS WITH MINERALS, THERAPEUTIC TABLET PO SCH (08:30)
[2016-07-20 09:40] LABS: BASOPHILS % (AUTO) 0.3 % (0.0-2.0); EOSINOPHILS % (AUTO) 1.5 % (1.0-6.0); HEMATOCRIT 47.5 % (36-46); HEMOGLOBIN 15.8 g/dL (12.0-16.0); LYMPHOCYTES % (AUTO) 20.2 % (22.0-44.0); MEAN CORPUSCULAR HEMOGLOBIN 28.4 pg (26.0-34.0); MEAN CORPUSCULAR HGB CONC 33.3 G/dL (31.0-37.0); MEAN CORPUSCULAR VOLUME 85 fL (80-100); NEUTROPHILS # (AUTO) 18.3 K/uL (1.8-7.7); PLATELET COUNT (AUTO) 231 K/uL (150-450); RED BLOOD CELL COUNT(AUTO) 5.57 MIL/uL (4.00-5.20); RED CELL DISTRIBUTION WIDTH 13.2 % (11.5-14.5); WHITE BLOOD COUNT (AUTO) 24.7 K/uL (4.5-11.0)
[2016-07-20 10:33] LABS: ALANINE AMINOTRANSFERASE 75 U/L (12-78); ALBUMIN 3.7 g/dL (3.4-5.0); ANION GAP 13 mmol/L (8-16); ASPARTATE AMINOTRANSFERASE 52 U/L (15-37); BILIRUBIN,TOTAL 0.4 mg/dL (0.1-1.0); CALCIUM, TOTAL 9.1 mg/dL (8.8-10.5); CARBON DIOXIDE 24 mmol/L (22-29); CHLORIDE 102 mmol/L (98-107); CREATINE KINASE, TOTAL 80 U/L (26-192); CREATININE 0.57 mg/dL (0.60-1.30); GLOMERULAR FILTR. RATE CALC > 60 mL/min (>60); POTASSIUM 4.2 mmol/L (3.5-5.1); SODIUM SERUM 139 mmol/L (136-145); THYROID STIMULATING HORMONE 2.72 uIU/mL (0.36-3.74); TOTAL PROTEIN, SERUM 7.7 g/dL (6.4-8.2); UREA NITROGEN, BLOOD 10 mg/dL (7-18)
[2016-07-20 10:37] LABS: CREATINE KINASE MB < 0.5 ng/mL (0-5)
[2016-07-20 16:01] VITALS: BP 115/66
[2016-07-20] MEDS: TOPIRAMATE 25 MG TABLET PO SCH (20:01)
[2016-07-20] MEDS: DIVALPROEX SODIUM 500 MG ER TABLET PO SCH (20:03)
[2016-07-21 06:15] VITALS: BP 107/61
[2016-07-21 08:01] VITALS: BP 110/64
[2016-07-21 08:19] LABS: APPEARANCE,URINE CLEAR (CLEAR); GLUCOSE, URINE (UA) 100 mg/dL (NEGATIVE); KETONES,URINE 15 mg/dL (NEGATIVE); LEUKOCYTE ESTERASE ,URINE NEGATIVE (NEGATIVE); OCCULT BLOOD,URINE SMALL (NEGATIVE); PROTEIN,URINE NEGATIVE (NEGATIVE)
[2016-07-21 08:22] LABS: ADD UA MICROSCOPIC YES
[2016-07-21] MEDS: NICOTINE 21 MG/24 HOUR PATCH TD SCH (08:36)
[2016-07-21] MEDS: MULTIVITAMINS WITH MINERALS, THERAPEUTIC TABLET PO SCH (08:36)
[2016-07-21] MEDS: CloZAPine 100 MG TABLET PO SCH ×2 (08:36→20:42)
[2016-07-21 08:41] LABS: RBC,URINE 0-2 /HPF (0-2); SQUAMOUS EPITHELIAL CELL,UR Few /LPF (None Seen)
[2016-07-21 10:34] LABS: HEPATITIS Bs ANTIGEN SCREEN P Negative (Negative); HEPATITIS C AB SCREEN <0.1 s/co ratio (0.0-0.9)
[2016-07-21 16:01] VITALS: BP 110/68
[2016-07-21] MEDS: AMOX TR/POT CLAV 875 MG/125 MG TABLET PO SCH (16:33)
[2016-07-21] MEDS: DIVALPROEX SODIUM 500 MG ER TABLET PO SCH (20:41)
[2016-07-21] MEDS: TOPIRAMATE 25 MG TABLET PO SCH (20:42)
[2016-07-22 00:25] VITALS: BP 117/73
[2016-07-22 08:26] LABS: BASOPHILS % (AUTO) 0.3 % (0.0-2.0); EOSINOPHILS % (AUTO) 2.7 % (1.0-6.0); HEMATOCRIT 39.7 % (36-46); HEMOGLOBIN 13.5 g/dL (12.0-16.0); LYMPHOCYTES # (AUTO) 4.2 K/uL (1.0-4.8); LYMPHOCYTES % (AUTO) 42.2 % (22.0-44.0); MEAN CORPUSCULAR HEMOGLOBIN 28.8 pg (26.0-34.0); MEAN CORPUSCULAR HGB CONC 34.1 G/dL (31.0-37.0); MEAN CORPUSCULAR VOLUME 85 fL (80-100); MONOCYTES # (AUTO) 0.9 K/uL (0.1-1.0); MONOCYTES % (AUTO) 9.5 % (2.0-9.0); NEUTROPHILS # (AUTO) 4.5 K/uL (1.8-7.7); NEUTROPHILS % (AUTO) 45.3 % (40.0-70.0); PLATELET COUNT (AUTO) 315 K/uL (150-450); RED BLOOD CELL COUNT(AUTO) 4.69 MIL/uL (4.00-5.20); RED CELL DISTRIBUTION WIDTH 13.2 % (11.5-14.5)
[2016-07-22] MEDS: AMOX TR/POT CLAV 875 MG/125 MG TABLET PO SCH ×2 (08:45→16:10)
[2016-07-22] MEDS: MULTIVITAMINS WITH MINERALS, THERAPEUTIC TABLET PO SCH (08:45)
[2016-07-22] MEDS: NICOTINE 21 MG/24 HOUR PATCH TD SCH (08:46)
[2016-07-22] MEDS: CloZAPine 100 MG TABLET PO SCH ×2 (08:46→20:07)
[2016-07-22 09:04] VITALS: BP 116/61
[2016-07-22 16:06] VITALS: BP 138/72
[2016-07-22] MEDS: TOPIRAMATE 25 MG TABLET PO SCH (20:07)
[2016-07-22] MEDS: DIVALPROEX SODIUM 500 MG ER TABLET PO SCH (20:07)
[2016-07-23 00:52] VITALS: BP 108/57
[2016-07-23] MEDS: NICOTINE 21 MG/24 HOUR PATCH TD SCH (08:41)
[2016-07-23] MEDS: AMOX TR/POT CLAV 875 MG/125 MG TABLET PO SCH ×2 (08:41→17:14)
[2016-07-23] MEDS: CloZAPine 100 MG TABLET PO SCH ×2 (08:41→20:50)
[2016-07-23] MEDS: MULTIVITAMINS WITH MINERALS, THERAPEUTIC TABLET PO SCH (08:41)
[2016-07-23 16:01] VITALS: BP 106/82
[2016-07-23] MEDS: DIVALPROEX SODIUM 500 MG ER TABLET PO SCH (20:50)
[2016-07-23] MEDS: TOPIRAMATE 25 MG TABLET PO SCH (20:52)
[2016-07-24 00:02] VITALS: BP 110/65
[2016-07-24] MEDS: NICOTINE 21 MG/24 HOUR PATCH TD SCH (09:15)
[2016-07-24] MEDS: MULTIVITAMINS WITH MINERALS, THERAPEUTIC TABLET PO SCH (09:16)
[2016-07-24] MEDS: AMOX TR/POT CLAV 875 MG/125 MG TABLET PO SCH ×2 (09:16→16:17)
[2016-07-24] MEDS: CloZAPine 100 MG TABLET PO SCH ×2 (09:16→21:08)
[2016-07-24 16:01] VITALS: BP 109/64
[2016-07-24] MEDS: TOPIRAMATE 25 MG TABLET PO SCH (21:08)
[2016-07-24] MEDS: DIVALPROEX SODIUM 500 MG ER TABLET PO SCH (21:08)
[2016-07-25 01:26] VITALS: BP 122/75
[2016-07-25] MEDS: MULTIVITAMINS WITH MINERALS, THERAPEUTIC TABLET PO SCH (09:33)
[2016-07-25] MEDS: AMOX TR/POT CLAV 875 MG/125 MG TABLET PO SCH ×2 (09:34→16:35)
[2016-07-25] MEDS: CloZAPine 100 MG TABLET PO SCH ×2 (09:34→20:46)
[2016-07-25] MEDS: NICOTINE 21 MG/24 HOUR PATCH TD SCH (09:40)
[2016-07-25 11:19] VITALS: BP 117/75
[2016-07-25 16:00] VITALS: BP 106/68
[2016-07-25] MEDS: DIVALPROEX SODIUM 500 MG ER TABLET PO SCH (20:46)
[2016-07-25] MEDS: TOPIRAMATE 25 MG TABLET PO SCH (20:47)
[2016-07-26 02:27] VITALS: BP 106/68
[2016-07-26 08:02] VITALS: BP 112/71
[2016-07-26] MEDS: MULTIVITAMINS WITH MINERALS, THERAPEUTIC TABLET PO SCH (09:17)
[2016-07-26] MEDS: NICOTINE 21 MG/24 HOUR PATCH TD SCH (09:17)
[2016-07-26] MEDS: AMOX TR/POT CLAV 875 MG/125 MG TABLET PO SCH (09:17)
[2016-07-26] MEDS: CloZAPine 100 MG TABLET PO SCH ×2 (09:18→20:53)
[2016-07-26 16:02] VITALS: BP 119/67
[2016-07-26] MEDS: TOPIRAMATE 25 MG TABLET PO SCH (20:53)
[2016-07-26] MEDS: DIVALPROEX SODIUM 500 MG ER TABLET PO SCH (20:53)
[2016-07-27 06:56] VITALS: BP 97/63
[2016-07-27] MEDS: MULTIVITAMINS WITH MINERALS, THERAPEUTIC TABLET PO SCH (09:56)
[2016-07-27] MEDS: CloZAPine 100 MG TABLET PO SCH ×2 (09:56→20:29)
[2016-07-27] MEDS: NICOTINE 21 MG/24 HOUR PATCH TD SCH (09:56)
[2016-07-27 16:02] VITALS: BP 117/63
[2016-07-27] MEDS: DIVALPROEX SODIUM 500 MG ER TABLET PO SCH (20:29)
[2016-07-27] MEDS: TOPIRAMATE 25 MG TABLET PO SCH (20:30)
[2016-07-28] MEDS: NICOTINE 21 MG/24 HOUR PATCH TD SCH (08:28)
[2016-07-28] MEDS: MULTIVITAMINS WITH MINERALS, THERAPEUTIC TABLET PO SCH (08:28)
[2016-07-28] MEDS: CloZAPine 100 MG TABLET PO SCH ×2 (08:28→20:22)
[2016-07-28 16:22] VITALS: BP 116/69
[2016-07-28] MEDS: TOPIRAMATE 25 MG TABLET PO SCH (20:22)
[2016-07-28] MEDS: DIVALPROEX SODIUM 500 MG ER TABLET PO SCH (20:22)
[2016-07-29 00:14] VITALS: BP 120/59
[2016-07-29] MEDS: CloZAPine 100 MG TABLET PO SCH ×2 (08:47→20:28)
[2016-07-29] MEDS: MULTIVITAMINS WITH MINERALS, THERAPEUTIC TABLET PO SCH (08:47)
[2016-07-29] MEDS: NICOTINE 21 MG/24 HOUR PATCH TD SCH (08:48)
[2016-07-29 09:00] LABS: BASOPHILS # (AUTO) 0.03 K/uL (0.00-0.20); BASOPHILS % (AUTO) 0.3 % (0.0-2.0); EOSINOPHILS # (AUTO) 0.22 K/uL (0.00-0.70); EOSINOPHILS % (AUTO) 2.09 % (1.0-6.0); HEMATOCRIT 40.1 % (36-46); HEMOGLOBIN 13.6 g/dL (12.0-16.0); LYMPHOCYTES # (AUTO) 4.8 K/uL (1.0-4.8); LYMPHOCYTES % (AUTO) 44.6 % (22.0-44.0); MEAN CORPUSCULAR HEMOGLOBIN 28.5 pg (26.0-34.0); MEAN CORPUSCULAR VOLUME 84 fL (80-100); MONOCYTES % (AUTO) 9.4 % (2.0-9.0); NEUTROPHILS # (AUTO) 4.7 K/uL (1.8-7.7); NEUTROPHILS % (AUTO) 43.7 % (40.0-70.0); PLATELET COUNT (AUTO) 344 K/uL (150-450); RED BLOOD CELL COUNT(AUTO) 4.79 MIL/uL (4.00-5.20); RED CELL DISTRIBUTION WIDTH 14.1 % (11.5-14.5); WHITE BLOOD COUNT (AUTO) 10.7 K/uL (4.5-11.0)
[2016-07-29 16:09] VITALS: BP 120/78
[2016-07-29] MEDS: DIVALPROEX SODIUM 500 MG ER TABLET PO SCH (20:27)
[2016-07-29] MEDS: TOPIRAMATE 25 MG TABLET PO SCH (20:27)
[2016-07-30] MEDS: NICOTINE 21 MG/24 HOUR PATCH TD SCH (08:16)
[2016-07-30] MEDS: CloZAPine 100 MG TABLET PO SCH ×2 (08:16→20:34)
[2016-07-30] MEDS: MULTIVITAMINS WITH MINERALS, THERAPEUTIC TABLET PO SCH (08:16)
[2016-07-30 13:24] VITALS: BP 112/73
[2016-07-30 16:06] VITALS: BP 118/66
[2016-07-30] MEDS: DIVALPROEX SODIUM 500 MG ER TABLET PO SCH (20:34)
[2016-07-30] MEDS: TOPIRAMATE 25 MG TABLET PO SCH (20:34)
[2016-07-31 02:35] VITALS: BP 119/79
[2016-07-31] MEDS: MULTIVITAMINS WITH MINERALS, THERAPEUTIC TABLET PO SCH (09:00)
[2016-07-31] MEDS: NICOTINE 21 MG/24 HOUR PATCH TD SCH (09:00)
[2016-07-31] MEDS: CloZAPine 100 MG TABLET PO SCH ×2 (09:00→20:24)
[2016-07-31] MEDS: LOPERAMIDE HCL 2 MG CAPSULE PO PRN (13:44)
[2016-07-31 16:09] VITALS: BP 111/60
[2016-07-31] MEDS: DIVALPROEX SODIUM 500 MG ER TABLET PO SCH (20:24)
[2016-07-31] MEDS: TOPIRAMATE 25 MG TABLET PO SCH (20:24)
[2016-08-01 00:13] VITALS: BP 108/60
[2016-08-01 08:04] VITALS: BP 132/63
[2016-08-01] MEDS: CloZAPine 100 MG TABLET PO SCH ×2 (08:13→20:33)
[2016-08-01] MEDS: NICOTINE 21 MG/24 HOUR PATCH TD SCH (08:14)
[2016-08-01] MEDS: MULTIVITAMINS WITH MINERALS, THERAPEUTIC TABLET PO SCH (08:14)
[2016-08-01 16:00] VITALS: BP 114/78
[2016-08-01] MEDS: TOPIRAMATE 25 MG TABLET PO SCH (20:33)
[2016-08-01] MEDS: DIVALPROEX SODIUM 500 MG ER TABLET PO SCH (20:33)
[2016-08-02 06:27] VITALS: BP 119/72
[2016-08-02] MEDS: CloZAPine 100 MG TABLET PO SCH ×2 (08:27→20:08)
[2016-08-02] MEDS: NICOTINE 21 MG/24 HOUR PATCH TD SCH (08:27)
[2016-08-02] MEDS: MULTIVITAMINS WITH MINERALS, THERAPEUTIC TABLET PO SCH (08:27)
[2016-08-02] MEDS: LOPERAMIDE HCL 2 MG CAPSULE PO PRN (15:59)
[2016-08-02 16:05] VITALS: BP 109/72
[2016-08-02] MEDS: DIVALPROEX SODIUM 500 MG ER TABLET PO SCH (20:06)
[2016-08-02] MEDS: TOPIRAMATE 25 MG TABLET PO SCH (20:07)
[2016-08-03 06:56] VITALS: BP 116/74
[2016-08-03 08:15] VITALS: BP 112/67
[2016-08-03] MEDS: CloZAPine 100 MG TABLET PO SCH ×2 (08:34→20:42)
[2016-08-03] MEDS: MULTIVITAMINS WITH MINERALS, THERAPEUTIC TABLET PO SCH (08:34)
[2016-08-03] MEDS: NICOTINE 21 MG/24 HOUR PATCH TD SCH (08:37)
[2016-08-03 16:04] VITALS: BP 128/70
[2016-08-03] MEDS: TOPIRAMATE 25 MG TABLET PO SCH (20:42)
[2016-08-03] MEDS: DIVALPROEX SODIUM 500 MG ER TABLET PO SCH (20:42)
[2016-08-04 00:06] VITALS: BP 105/66
[2016-08-04] MEDS: MULTIVITAMINS WITH MINERALS, THERAPEUTIC TABLET PO SCH (08:27)
[2016-08-04] MEDS: CloZAPine 100 MG TABLET PO SCH ×2 (08:28→20:36)
[2016-08-04] MEDS: NICOTINE 21 MG/24 HOUR PATCH TD SCH ×2 (08:28→09:00)
[2016-08-04 16:09] VITALS: BP 114/61
[2016-08-04] MEDS: TOPIRAMATE 25 MG TABLET PO SCH (20:36)
[2016-08-04] MEDS: DIVALPROEX SODIUM 500 MG ER TABLET PO SCH (20:37)
[2016-08-05 00:23] VITALS: BP 103/62
[2016-08-05 08:01] VITALS: BP 110/64
[2016-08-05] MEDS: CloZAPine 100 MG TABLET PO SCH ×2 (08:13→20:08)
[2016-08-05] MEDS: NICOTINE 21 MG/24 HOUR PATCH TD SCH (08:13)
[2016-08-05] MEDS: MULTIVITAMINS WITH MINERALS, THERAPEUTIC TABLET PO SCH (08:13)
[2016-08-05 08:44] LABS: BASOPHILS % (AUTO) 0.3 % (0.0-2.0); EOSINOPHILS % (AUTO) 2.6 % (1.0-6.0); HEMATOCRIT 41.1 % (36-46); HEMOGLOBIN 13.9 g/dL (12.0-16.0); LYMPHOCYTES # (AUTO) 3.7 K/uL (1.0-4.8); MEAN CORPUSCULAR HEMOGLOBIN 28.6 pg (26.0-34.0); MEAN CORPUSCULAR HGB CONC 33.7 G/dL (31.0-37.0); MEAN CORPUSCULAR VOLUME 85 fL (80-100); MONOCYTES # (AUTO) 0.9 K/uL (0.1-1.0); NEUTROPHILS # (AUTO) 10.3 K/uL (1.8-7.7); NEUTROPHILS % (AUTO) 67.1 % (40.0-70.0); PLATELET COUNT (AUTO) 345 K/uL (150-450); RED BLOOD CELL COUNT(AUTO) 4.85 MIL/uL (4.00-5.20); RED CELL DISTRIBUTION WIDTH 13.7 % (11.5-14.5); WHITE BLOOD COUNT (AUTO) 15.4 K/uL (4.5-11.0)
[2016-08-05 16:10] VITALS: BP 130/70
[2016-08-05] MEDS: DIVALPROEX SODIUM 500 MG ER TABLET PO SCH (20:08)
[2016-08-05] MEDS: TOPIRAMATE 25 MG TABLET PO SCH (20:08)
[2016-08-06 00:01] VITALS: BP 104/67
[2016-08-06 08:04] VITALS: BP 108/68
[2016-08-06] MEDS: NICOTINE 21 MG/24 HOUR PATCH TD SCH (08:45)
[2016-08-06] MEDS: CloZAPine 100 MG TABLET PO SCH ×2 (08:45→20:33)
[2016-08-06] MEDS: MULTIVITAMINS WITH MINERALS, THERAPEUTIC TABLET PO SCH (08:45)
[2016-08-06 16:10] VITALS: BP 135/83
[2016-08-06] MEDS: TOPIRAMATE 25 MG TABLET PO SCH (20:32)
[2016-08-06] MEDS: DIVALPROEX SODIUM 500 MG ER TABLET PO SCH (20:33)
[2016-08-07 07:13] VITALS: BP 132/80
[2016-08-07 08:01] VITALS: BP 130/78
[2016-08-07] MEDS: CloZAPine 100 MG TABLET PO SCH ×2 (08:30→20:33)
[2016-08-07] MEDS: MULTIVITAMINS WITH MINERALS, THERAPEUTIC TABLET PO SCH (08:31)
[2016-08-07] MEDS: NICOTINE 21 MG/24 HOUR PATCH TD SCH ×2 (08:31→14:52)
[2016-08-07 16:14] VITALS: BP 130/79
[2016-08-07] MEDS: DIVALPROEX SODIUM 500 MG ER TABLET PO SCH (20:32)
[2016-08-07] MEDS: TOPIRAMATE 25 MG TABLET PO SCH (20:33)
[2016-08-08 01:16] VITALS: BP 108/60
[2016-08-08 08:00] VITALS: BP 108/68
[2016-08-08] MEDS: NICOTINE 21 MG/24 HOUR PATCH TD SCH (08:16)
[2016-08-08] MEDS: CloZAPine 100 MG TABLET PO SCH ×2 (08:16→20:08)
[2016-08-08] MEDS: MULTIVITAMINS WITH MINERALS, THERAPEUTIC TABLET PO SCH (08:16)
[2016-08-08 16:02] VITALS: BP 127/77
[2016-08-08] MEDS: DIVALPROEX SODIUM 500 MG ER TABLET PO SCH (20:08)
[2016-08-08] MEDS: TOPIRAMATE 25 MG TABLET PO SCH (20:08)
[2016-08-08] MEDS: LORazepam 2 MG TABLET PO PRN (20:59)
[2016-08-09 00:05] VITALS: BP 117/70
[2016-08-09 08:04] VITALS: BP 113/70
[2016-08-09] MEDS: MULTIVITAMINS WITH MINERALS, THERAPEUTIC TABLET PO SCH (08:13)
[2016-08-09] MEDS: NICOTINE 21 MG/24 HOUR PATCH TD SCH (08:13)
[2016-08-09] MEDS: CloZAPine 100 MG TABLET PO SCH ×2 (08:13→20:32)
[2016-08-09 16:04] VITALS: BP 120/77
[2016-08-09] MEDS: DIVALPROEX SODIUM 500 MG ER TABLET PO SCH (20:32)
[2016-08-09] MEDS: TOPIRAMATE 25 MG TABLET PO SCH (20:32)
[2016-08-10 06:30] VITALS: BP 106/67
[2016-08-10 08:01] VITALS: BP 110/65
[2016-08-10] MEDS: CloZAPine 100 MG TABLET PO SCH ×2 (08:03→20:36)
[2016-08-10] MEDS: MULTIVITAMINS WITH MINERALS, THERAPEUTIC TABLET PO SCH (08:03)
[2016-08-10] MEDS: NICOTINE 21 MG/24 HOUR PATCH TD SCH (08:03)
[2016-08-10 16:07] VITALS: BP 115/66
[2016-08-10] MEDS: LOPERAMIDE HCL 2 MG CAPSULE PO PRN (16:58)
[2016-08-10] MEDS: TOPIRAMATE 25 MG TABLET PO SCH (20:36)
[2016-08-10] MEDS: DIVALPROEX SODIUM 500 MG ER TABLET PO SCH (20:36)
[2016-08-11] MEDS: MULTIVITAMINS WITH MINERALS, THERAPEUTIC TABLET PO SCH (08:12)
[2016-08-11] MEDS: CloZAPine 100 MG TABLET PO SCH ×2 (08:12→20:31)
[2016-08-11] MEDS: NICOTINE 21 MG/24 HOUR PATCH TD SCH (08:14)
[2016-08-11 08:18] VITALS: BP 102/60
[2016-08-11 16:06] VITALS: BP 124/79
[2016-08-11] MEDS: TOPIRAMATE 25 MG TABLET PO SCH (20:31)
[2016-08-11] MEDS: DIVALPROEX SODIUM 500 MG ER TABLET PO SCH (20:31)
[2016-08-12 01:52] VITALS: BP 103/65
[2016-08-12] MEDS: MULTIVITAMINS WITH MINERALS, THERAPEUTIC TABLET PO SCH (08:11)
[2016-08-12] MEDS: NICOTINE 21 MG/24 HOUR PATCH TD SCH (08:11)
[2016-08-12] MEDS: CloZAPine 100 MG TABLET PO SCH ×2 (08:11→20:47)
[2016-08-12 08:20] LABS: BASOPHILS % (AUTO) 0.3 % (0.0-2.0); EOSINOPHILS % (AUTO) 2.7 % (1.0-6.0); HEMATOCRIT 43.1 % (36-46); HEMOGLOBIN 14.8 g/dL (12.0-16.0); LYMPHOCYTES # (AUTO) 4.4 K/uL (1.0-4.8); LYMPHOCYTES % (AUTO) 43.4 % (22.0-44.0); MEAN CORPUSCULAR HEMOGLOBIN 29.1 pg (26.0-34.0); MEAN CORPUSCULAR HGB CONC 34.4 G/dL (31.0-37.0); MEAN CORPUSCULAR VOLUME 85 fL (80-100); NEUTROPHILS # (AUTO) 4.5 K/uL (1.8-7.7); NEUTROPHILS % (AUTO) 43.6 % (40.0-70.0); PLATELET COUNT (AUTO) 344 K/uL (150-450); RED BLOOD CELL COUNT(AUTO) 5.09 MIL/uL (4.00-5.20); RED CELL DISTRIBUTION WIDTH 13.8 % (11.5-14.5); WHITE BLOOD COUNT (AUTO) 10.2 K/uL (4.5-11.0)
[2016-08-12 16:03] VITALS: BP 132/84
[2016-08-12] MEDS: DIVALPROEX SODIUM 500 MG ER TABLET PO SCH (20:47)
[2016-08-12] MEDS: TOPIRAMATE 25 MG TABLET PO SCH (20:47)
[2016-08-13] VITALS: BP 124/81
[2016-08-13] MEDS: MULTIVITAMINS WITH MINERALS, THERAPEUTIC TABLET PO SCH (08:39)
[2016-08-13] MEDS: CloZAPine 100 MG TABLET PO SCH ×2 (08:39→20:39)
[2016-08-13] MEDS: NICOTINE 21 MG/24 HOUR PATCH TD SCH (08:40)
[2016-08-13 16:02] VITALS: BP 138/85
[2016-08-13] MEDS: TOPIRAMATE 25 MG TABLET PO SCH (20:39)
[2016-08-13] MEDS: DIVALPROEX SODIUM 500 MG ER TABLET PO SCH (20:39)
[2016-08-14 05:50] VITALS: BP 104/65
[2016-08-14] MEDS: CloZAPine 100 MG TABLET PO SCH ×2 (08:24→20:27)
[2016-08-14] MEDS: MULTIVITAMINS WITH MINERALS, THERAPEUTIC TABLET PO SCH (08:24)
[2016-08-14] MEDS: NICOTINE 21 MG/24 HOUR PATCH TD SCH (08:25)
[2016-08-14 16:04] VITALS: BP 129/75
[2016-08-14] MEDS: TOPIRAMATE 25 MG TABLET PO SCH (20:27)
[2016-08-14] MEDS: DIVALPROEX SODIUM 500 MG ER TABLET PO SCH (20:27)
[2016-08-15 00:50] VITALS: BP 102/61
[2016-08-15] MEDS: CloZAPine 100 MG TABLET PO SCH ×2 (08:28→20:35)
[2016-08-15] MEDS: MULTIVITAMINS WITH MINERALS, THERAPEUTIC TABLET PO SCH (08:28)
[2016-08-15] MEDS: NICOTINE 21 MG/24 HOUR PATCH TD SCH (08:29)
[2016-08-15 16:10] VITALS: BP 115/72
[2016-08-15] MEDS: DIVALPROEX SODIUM 500 MG ER TABLET PO SCH (20:35)
[2016-08-15] MEDS: TOPIRAMATE 25 MG TABLET PO SCH (20:35)
[2016-08-16 03:16] VITALS: BP 106/60
[2016-08-16] MEDS: MULTIVITAMINS WITH MINERALS, THERAPEUTIC TABLET PO SCH (08:15)
[2016-08-16] MEDS: CloZAPine 100 MG TABLET PO SCH ×2 (08:15→20:31)
[2016-08-16] MEDS: NICOTINE 21 MG/24 HOUR PATCH TD SCH (08:16)
[2016-08-16 08:31] VITALS: BP 103/60
[2016-08-16 16:33] VITALS: BP 121/74
[2016-08-16] MEDS: TOPIRAMATE 25 MG TABLET PO SCH (20:30)
[2016-08-16] MEDS: DIVALPROEX SODIUM 500 MG ER TABLET PO SCH (20:31)
[2016-08-17 00:10] VITALS: BP 101/60
[2016-08-17 08:08] VITALS: BP 102/51
[2016-08-17] MEDS: CloZAPine 100 MG TABLET PO SCH ×2 (08:32→20:33)
[2016-08-17] MEDS: MULTIVITAMINS WITH MINERALS, THERAPEUTIC TABLET PO SCH (08:32)
[2016-08-17] MEDS: NICOTINE 21 MG/24 HOUR PATCH TD SCH (08:33)
[2016-08-17 16:02] VITALS: BP 109/75
[2016-08-17] MEDS: TOPIRAMATE 25 MG TABLET PO SCH (20:33)
[2016-08-17] MEDS: DIVALPROEX SODIUM 500 MG ER TABLET PO SCH (20:33)
[2016-08-18 00:02] VITALS: BP 101/65
[2016-08-18] MEDS: MULTIVITAMINS WITH MINERALS, THERAPEUTIC TABLET PO SCH (08:43)
[2016-08-18] MEDS: CloZAPine 100 MG TABLET PO SCH ×2 (08:43→20:33)
[2016-08-18] MEDS: NICOTINE 21 MG/24 HOUR PATCH TD SCH (09:00)
[2016-08-18 16:04] VITALS: BP 118/82
[2016-08-18] MEDS: DIVALPROEX SODIUM 500 MG ER TABLET PO SCH (20:33)
[2016-08-18] MEDS: TOPIRAMATE 25 MG TABLET PO SCH (20:33)
[2016-08-18] MEDS: ACETAMINOPHEN 325 MG TABLET PO PRN (20:47)
[2016-08-19 04:02] VITALS: BP 102/69
[2016-08-19 07:34] LABS: BASOPHILS % (AUTO) 0.2 % (0.0-2.0); EOSINOPHILS % (AUTO) 1.7 % (1.0-6.0); HEMATOCRIT 39.3 % (36-46); HEMOGLOBIN 13.2 g/dL (12.0-16.0); LYMPHOCYTES # (AUTO) 4.4 K/uL (1.0-4.8); LYMPHOCYTES % (AUTO) 28.5 % (22.0-44.0); MEAN CORPUSCULAR HEMOGLOBIN 28.7 pg (26.0-34.0); MEAN CORPUSCULAR HGB CONC 33.7 G/dL (31.0-37.0); MEAN CORPUSCULAR VOLUME 85 fL (80-100); MONOCYTES # (AUTO) 1.4 K/uL (0.1-1.0); MONOCYTES % (AUTO) 9.1 % (2.0-9.0); NEUTROPHILS # (AUTO) 9.3 K/uL (1.8-7.7); NEUTROPHILS % (AUTO) 60.5 % (40.0-70.0); PLATELET COUNT (AUTO) 350 K/uL (150-450); RED BLOOD CELL COUNT(AUTO) 4.62 MIL/uL (4.00-5.20); RED CELL DISTRIBUTION WIDTH 13.8 % (11.5-14.5); WHITE BLOOD COUNT (AUTO) 15.4 K/uL (4.5-11.0)
[2016-08-19] MEDS: MULTIVITAMINS WITH MINERALS, THERAPEUTIC TABLET PO SCH (08:39)
[2016-08-19] MEDS: CloZAPine 100 MG TABLET PO SCH ×2 (08:39→20:35)
[2016-08-19] MEDS: NICOTINE 21 MG/24 HOUR PATCH TD SCH (08:39)
[2016-08-19 16:03] VITALS: BP 114/70
[2016-08-19] MEDS: TOPIRAMATE 25 MG TABLET PO SCH (20:34)
[2016-08-19] MEDS: DIVALPROEX SODIUM 500 MG ER TABLET PO SCH (20:34)
[2016-08-20 06:14] VITALS: BP 101/62
[2016-08-20 08:15] VITALS: BP 115/68
[2016-08-20] MEDS: NICOTINE 21 MG/24 HOUR PATCH TD SCH (08:44)
[2016-08-20] MEDS: MULTIVITAMINS WITH MINERALS, THERAPEUTIC TABLET PO SCH (08:44)
[2016-08-20] MEDS: CloZAPine 100 MG TABLET PO SCH ×2 (08:44→20:37)
[2016-08-20 16:02] VITALS: BP 127/80
[2016-08-20] MEDS: ACETAMINOPHEN 325 MG TABLET PO PRN (18:56)
[2016-08-20] MEDS: DIVALPROEX SODIUM 500 MG ER TABLET PO SCH (20:37)
[2016-08-20] MEDS: TOPIRAMATE 25 MG TABLET PO SCH (20:37)
[2016-08-21] MEDS: CloZAPine 100 MG TABLET PO SCH ×2 (08:44→20:39)
[2016-08-21] MEDS: MULTIVITAMINS WITH MINERALS, THERAPEUTIC TABLET PO SCH (08:44)
[2016-08-21] MEDS: NICOTINE 21 MG/24 HOUR PATCH TD SCH (08:44)
[2016-08-21 09:35] VITALS: BP 130/89
[2016-08-21 16:15] VITALS: BP 113/65
[2016-08-21] MEDS: TOPIRAMATE 25 MG TABLET PO SCH (20:39)
[2016-08-21] MEDS: DIVALPROEX SODIUM 500 MG ER TABLET PO SCH (20:39)
[2016-08-22 00:02] VITALS: BP 110/64
[2016-08-22 08:02] VITALS: BP 111/68
[2016-08-22] MEDS: NICOTINE 21 MG/24 HOUR PATCH TD SCH (08:41)
[2016-08-22] MEDS: CloZAPine 100 MG TABLET PO SCH ×2 (08:41→20:28)
[2016-08-22] MEDS: MULTIVITAMINS WITH MINERALS, THERAPEUTIC TABLET PO SCH (08:41)
[2016-08-22 16:06] VITALS: BP 121/63
[2016-08-22] MEDS: DIVALPROEX SODIUM 500 MG ER TABLET PO SCH (20:28)
[2016-08-22] MEDS: TOPIRAMATE 25 MG TABLET PO SCH (20:28)
[2016-08-23 04:59] VITALS: BP 124/81
[2016-08-23 07:47] VITALS: BP 114/74
[2016-08-23 08:00] VITALS: BP 114/74
[2016-08-23] MEDS: NICOTINE 21 MG/24 HOUR PATCH TD SCH (09:00)
[2016-08-23] MEDS: MULTIVITAMINS WITH MINERALS, THERAPEUTIC TABLET PO SCH (09:19)
[2016-08-23] MEDS: CloZAPine 100 MG TABLET PO SCH ×2 (09:20→20:35)
[2016-08-23 16:02] VITALS: BP 108/63
[2016-08-23] MEDS: DIVALPROEX SODIUM 500 MG ER TABLET PO SCH (20:35)
[2016-08-23] MEDS: TOPIRAMATE 25 MG TABLET PO SCH (20:36)
[2016-08-24 05:19] VITALS: BP 127/85
[2016-08-24] MEDS: MULTIVITAMINS WITH MINERALS, THERAPEUTIC TABLET PO SCH (08:54)
[2016-08-24] MEDS: NICOTINE 21 MG/24 HOUR PATCH TD SCH (08:54)
[2016-08-24] MEDS: CloZAPine 100 MG TABLET PO SCH ×2 (08:54→20:37)
[2016-08-24 09:07] VITALS: BP 100/63
[2016-08-24 16:13] VITALS: BP 116/65
[2016-08-24] MEDS: TOPIRAMATE 25 MG TABLET PO SCH ×2 (16:38→20:38)
[2016-08-24] MEDS: DIVALPROEX SODIUM 500 MG ER TABLET PO SCH (20:37)
[2016-08-24] MEDS: GuaiFENesin/D-METHORPHAN [SUGAR-FREE] 200-20MG/10 ML SYRUP UDCUP PO PRN (21:39)
[2016-08-25 05:20] VITALS: BP 103/68
[2016-08-25] MEDS: NICOTINE 21 MG/24 HOUR PATCH TD SCH (09:00)
[2016-08-25] MEDS: TOPIRAMATE 25 MG TABLET PO SCH ×4 (09:23→20:30)
[2016-08-25] MEDS: CloZAPine 100 MG TABLET PO SCH ×2 (09:23→20:30)
[2016-08-25] MEDS: MULTIVITAMINS WITH MINERALS, THERAPEUTIC TABLET PO SCH (09:23)
[2016-08-25 16:09] VITALS: BP 133/84
[2016-08-25] MEDS: DIVALPROEX SODIUM 500 MG ER TABLET PO SCH (20:30)
[2016-08-26 00:55] VITALS: BP 123/73
[2016-08-26 08:21] LABS: BASOPHILS % (AUTO) 0.2 % (0.0-2.0); EOSINOPHILS % (AUTO) 2.8 % (1.0-6.0); HEMOGLOBIN 13.8 g/dL (12.0-16.0); LYMPHOCYTES # (AUTO) 4.3 K/uL (1.0-4.8); LYMPHOCYTES % (AUTO) 42.7 % (22.0-44.0); MEAN CORPUSCULAR HEMOGLOBIN 29.3 pg (26.0-34.0); MEAN CORPUSCULAR HGB CONC 34.5 G/dL (31.0-37.0); MEAN CORPUSCULAR VOLUME 85 fL (80-100); MONOCYTES % (AUTO) 9.6 % (2.0-9.0); NEUTROPHILS # (AUTO) 4.5 K/uL (1.8-7.7); NEUTROPHILS % (AUTO) 44.7 % (40.0-70.0); PLATELET COUNT (AUTO) 370 K/uL (150-450); RED BLOOD CELL COUNT(AUTO) 4.71 MIL/uL (4.00-5.20); RED CELL DISTRIBUTION WIDTH 13.6 % (11.5-14.5); WHITE BLOOD COUNT (AUTO) 10.2 K/uL (4.5-11.0)
[2016-08-26] MEDS: CloZAPine 100 MG TABLET PO SCH ×2 (09:09→20:29)
[2016-08-26] MEDS: NICOTINE 21 MG/24 HOUR PATCH TD SCH (09:09)
[2016-08-26] MEDS: TOPIRAMATE 25 MG TABLET PO SCH ×4 (09:09→20:29)
[2016-08-26] MEDS: MULTIVITAMINS WITH MINERALS, THERAPEUTIC TABLET PO SCH (09:09)
[2016-08-26 16:04] VITALS: BP 127/82
[2016-08-26] MEDS: DIVALPROEX SODIUM 500 MG ER TABLET PO SCH (20:28)
[2016-08-27 05:19] VITALS: BP 102/60
[2016-08-27] MEDS: CloZAPine 100 MG TABLET PO SCH ×2 (08:54→20:31)
[2016-08-27] MEDS: TOPIRAMATE 25 MG TABLET PO SCH ×4 (08:54→20:31)
[2016-08-27] MEDS: NICOTINE 21 MG/24 HOUR PATCH TD SCH (08:54)
[2016-08-27] MEDS: MULTIVITAMINS WITH MINERALS, THERAPEUTIC TABLET PO SCH (08:54)
[2016-08-27 16:15] VITALS: BP 114/63
[2016-08-27] MEDS: DIVALPROEX SODIUM 500 MG ER TABLET PO SCH (20:31)
[2016-08-28 00:02] VITALS: BP 106/64
[2016-08-28 08:00] VITALS: BP 106/64
[2016-08-28] MEDS: MULTIVITAMINS WITH MINERALS, THERAPEUTIC TABLET PO SCH (08:50)
[2016-08-28] MEDS: TOPIRAMATE 25 MG TABLET PO SCH ×2 (08:50→13:16)
[2016-08-28] MEDS: CloZAPine 100 MG TABLET PO SCH (08:50)
[2016-08-28] MEDS: NICOTINE 21 MG/24 HOUR PATCH TD SCH (08:51)
[2016-08-29] MEDS: TOPIRAMATE 25 MG TABLET PO SCH ×4 (09:00→21:00)
[2016-08-29] MEDS: CloZAPine 100 MG TABLET PO SCH ×2 (09:00→21:00)
[2016-08-29] MEDS: NICOTINE 21 MG/24 HOUR PATCH TD SCH (09:00)
[2016-08-29] MEDS: MULTIVITAMINS WITH MINERALS, THERAPEUTIC TABLET PO SCH (09:00)
[2016-08-29] MEDS: DIVALPROEX SODIUM 500 MG ER TABLET PO SCH (21:00)
[2016-08-30 06:40] VITALS: BP 111/67
[2016-08-30 08:11] VITALS: BP 126/72
[2016-08-30] MEDS: MULTIVITAMINS WITH MINERALS, THERAPEUTIC TABLET PO SCH (08:36)
[2016-08-30] MEDS: NICOTINE 21 MG/24 HOUR PATCH TD SCH (08:36)
[2016-08-30] MEDS: CloZAPine 100 MG TABLET PO SCH ×2 (08:36→21:00)
[2016-08-30] MEDS: TOPIRAMATE 25 MG TABLET PO SCH ×4 (08:36→21:00)
[2016-08-30 16:04] VITALS: BP 110/60
[2016-08-30] MEDS: DIVALPROEX SODIUM 500 MG ER TABLET PO SCH (20:59)
[2016-08-31] MEDS: MULTIVITAMINS WITH MINERALS, THERAPEUTIC TABLET PO SCH (08:35)
[2016-08-31] MEDS: CloZAPine 100 MG TABLET PO SCH ×2 (08:35→20:39)
[2016-08-31] MEDS: TOPIRAMATE 25 MG TABLET PO SCH ×4 (08:35→20:39)
[2016-08-31] MEDS: NICOTINE 21 MG/24 HOUR PATCH TD SCH (08:36)
[2016-08-31 16:05] VITALS: BP 117/70
[2016-08-31] MEDS: DIVALPROEX SODIUM 500 MG ER TABLET PO SCH (20:39)
[2016-09-01 02:01] VITALS: BP 123/82
[2016-09-01 08:09] VITALS: BP 102/66
[2016-09-01] MEDS: CloZAPine 100 MG TABLET PO SCH ×2 (08:35→20:31)
[2016-09-01] MEDS: MULTIVITAMINS WITH MINERALS, THERAPEUTIC TABLET PO SCH (08:35)
[2016-09-01] MEDS: TOPIRAMATE 25 MG TABLET PO SCH ×4 (08:36→20:31)
[2016-09-01] MEDS: NICOTINE 21 MG/24 HOUR PATCH TD SCH (08:36)
[2016-09-01 18:35] VITALS: BP 123/73
[2016-09-01] MEDS: DIVALPROEX SODIUM 500 MG ER TABLET PO SCH (20:31)
[2016-09-02 03:57] VITALS: BP 127/83
[2016-09-02 08:11] LABS: BASOPHILS % (AUTO) 0.1 % (0.0-2.0); EOSINOPHILS % (AUTO) 1.8 % (1.0-6.0); HEMATOCRIT 40.4 % (36-46); HEMOGLOBIN 13.9 g/dL (12.0-16.0); LYMPHOCYTES # (AUTO) 4.7 K/uL (1.0-4.8); LYMPHOCYTES % (AUTO) 45.1 % (22.0-44.0); MEAN CORPUSCULAR HEMOGLOBIN 29.1 pg (26.0-34.0); MEAN CORPUSCULAR HGB CONC 34.4 G/dL (31.0-37.0); MEAN CORPUSCULAR VOLUME 85 fL (80-100); MONOCYTES # (AUTO) 0.9 K/uL (0.1-1.0); MONOCYTES % (AUTO) 8.5 % (2.0-9.0); NEUTROPHILS # (AUTO) 4.7 K/uL (1.8-7.7); NEUTROPHILS % (AUTO) 44.5 % (40.0-70.0); PLATELET COUNT (AUTO) 343 K/uL (150-450); RED BLOOD CELL COUNT(AUTO) 4.78 MIL/uL (4.00-5.20); RED CELL DISTRIBUTION WIDTH 13.4 % (11.5-14.5); WHITE BLOOD COUNT (AUTO) 10.5 K/uL (4.5-11.0)
[2016-09-02] MEDS: TOPIRAMATE 25 MG TABLET PO SCH ×4 (09:19→20:21)
[2016-09-02] MEDS: MULTIVITAMINS WITH MINERALS, THERAPEUTIC TABLET PO SCH (09:19)
[2016-09-02] MEDS: CloZAPine 100 MG TABLET PO SCH ×2 (09:19→20:20)
[2016-09-02] MEDS: NICOTINE 21 MG/24 HOUR PATCH TD SCH (09:19)
[2016-09-02 16:26] VITALS: BP 109/60
[2016-09-02] MEDS: DIVALPROEX SODIUM 500 MG ER TABLET PO SCH (20:21)
[2016-09-03 04:51] VITALS: BP 113/71
[2016-09-03 08:23] VITALS: BP 102/66
[2016-09-03] MEDS: MULTIVITAMINS WITH MINERALS, THERAPEUTIC TABLET PO SCH (09:09)
[2016-09-03] MEDS: TOPIRAMATE 25 MG TABLET PO SCH ×4 (09:09→20:04)
[2016-09-03] MEDS: CloZAPine 100 MG TABLET PO SCH ×2 (09:09→20:03)
[2016-09-03] MEDS: NICOTINE 21 MG/24 HOUR PATCH TD SCH (09:09)
[2016-09-03 13:58] VITALS: BP 108/68
[2016-09-03] MEDS: ACETAMINOPHEN 325 MG TABLET PO PRN (13:58)
[2016-09-03 16:02] VITALS: BP 120/76
[2016-09-03] MEDS: DIVALPROEX SODIUM 500 MG ER TABLET PO SCH (20:04)
[2016-09-04 08:57] VITALS: BP 120/72
[2016-09-04] MEDS: TOPIRAMATE 25 MG TABLET PO SCH ×4 (09:13→20:14)
[2016-09-04] MEDS: MULTIVITAMINS WITH MINERALS, THERAPEUTIC TABLET PO SCH (09:13)
[2016-09-04] MEDS: CloZAPine 100 MG TABLET PO SCH ×2 (09:13→20:14)
[2016-09-04] MEDS: NICOTINE 21 MG/24 HOUR PATCH TD SCH (09:13)
[2016-09-04 16:42] VITALS: BP 112/76
[2016-09-04] MEDS: DIVALPROEX SODIUM 500 MG ER TABLET PO SCH (20:15)
[2016-09-05 06:15] VITALS: BP 107/61
[2016-09-05 08:02] VITALS: BP 115/74
[2016-09-05] MEDS: NICOTINE 21 MG/24 HOUR PATCH TD SCH (09:00)
[2016-09-05] MEDS: TOPIRAMATE 25 MG TABLET PO SCH ×4 (09:10→20:29)
[2016-09-05] MEDS: MULTIVITAMINS WITH MINERALS, THERAPEUTIC TABLET PO SCH (09:10)
[2016-09-05] MEDS: CloZAPine 100 MG TABLET PO SCH ×2 (09:10→20:28)
[2016-09-05 16:07] VITALS: BP 123/64
[2016-09-05] MEDS: DIVALPROEX SODIUM 500 MG ER TABLET PO SCH (20:28)
[2016-09-06 04:48] VITALS: BP 129/80
[2016-09-06] MEDS: TOPIRAMATE 25 MG TABLET PO SCH ×4 (09:22→20:27)
[2016-09-06] MEDS: CloZAPine 100 MG TABLET PO SCH ×2 (09:22→20:26)
[2016-09-06] MEDS: MULTIVITAMINS WITH MINERALS, THERAPEUTIC TABLET PO SCH (09:22)
[2016-09-06] MEDS: NICOTINE 21 MG/24 HOUR PATCH TD SCH (09:22)
[2016-09-06 16:10] VITALS: BP 107/60
[2016-09-06] MEDS: DIVALPROEX SODIUM 500 MG ER TABLET PO SCH (20:27)
[2016-09-07 03:31] VITALS: BP 115/77
[2016-09-07] MEDS: CloZAPine 100 MG TABLET PO SCH ×2 (08:47→21:04)
[2016-09-07] MEDS: MULTIVITAMINS WITH MINERALS, THERAPEUTIC TABLET PO SCH (08:47)
[2016-09-07] MEDS: NICOTINE 21 MG/24 HOUR PATCH TD SCH (08:48)
[2016-09-07] MEDS: TOPIRAMATE 25 MG TABLET PO SCH ×4 (08:48→21:02)
[2016-09-07 15:47] VITALS: BP 129/83
[2016-09-07 16:13] VITALS: BP 129/83
[2016-09-07] MEDS: DIVALPROEX SODIUM 500 MG ER TABLET PO SCH (21:03)
[2016-09-07] MEDS: ZOLPIDEM TARTRATE 10 MG TABLET PO PRN (21:04)
[2016-09-08 00:59] VITALS: BP 118/70
[2016-09-08 08:03] VITALS: BP 103/66
[2016-09-08] MEDS: CloZAPine 100 MG TABLET PO SCH ×2 (09:10→20:28)
[2016-09-08] MEDS: MULTIVITAMINS WITH MINERALS, THERAPEUTIC TABLET PO SCH (09:10)
[2016-09-08] MEDS: TOPIRAMATE 25 MG TABLET PO SCH ×4 (09:10→20:28)
[2016-09-08] MEDS: NICOTINE 21 MG/24 HOUR PATCH TD SCH (09:10)
[2016-09-08 16:01] VITALS: BP 121/72
[2016-09-08] MEDS: DIVALPROEX SODIUM 500 MG ER TABLET PO SCH (20:28)
[2016-09-09 00:37] VITALS: BP 103/65
[2016-09-09 08:10] LABS: HEMATOCRIT 39.9 % (36-46); HEMOGLOBIN 13.8 g/dL (12.0-16.0); MEAN CORPUSCULAR HEMOGLOBIN 29.4 pg (26.0-34.0); MEAN CORPUSCULAR HGB CONC 34.6 G/dL (31.0-37.0); MEAN CORPUSCULAR VOLUME 85 fL (80-100); PLATELET COUNT (AUTO) 324 K/uL (150-450); RED BLOOD CELL COUNT(AUTO) 4.69 MIL/uL (4.00-5.20); RED CELL DISTRIBUTION WIDTH 13.1 % (11.5-14.5); WHITE BLOOD COUNT (AUTO) 11.6 K/uL (4.5-11.0)
[2016-09-09] MEDS: NICOTINE 21 MG/24 HOUR PATCH TD SCH ×2 (09:00→09:09)
[2016-09-09] MEDS: CloZAPine 100 MG TABLET PO SCH ×2 (09:09→20:32)
[2016-09-09] MEDS: MULTIVITAMINS WITH MINERALS, THERAPEUTIC TABLET PO SCH (09:09)
[2016-09-09] MEDS: TOPIRAMATE 25 MG TABLET PO SCH ×4 (09:09→20:32)
[2016-09-09 10:37] LABS: BAND NEUTROPHILS % (MANUAL) 4 % (1-5); LYMPHOCYTES % (MANUAL) 46 % (22-44); TOTAL CELLS COUNTED 100
[2016-09-09 16:04] VITALS: BP 110/62
[2016-09-09] MEDS: DIVALPROEX SODIUM 500 MG ER TABLET PO SCH (20:32)
[2016-09-10 05:26] VITALS: BP 127/84
[2016-09-10 08:37] VITALS: BP 107/58
[2016-09-10] MEDS: TOPIRAMATE 25 MG TABLET PO SCH ×4 (09:36→20:32)
[2016-09-10] MEDS: CloZAPine 100 MG TABLET PO SCH ×2 (09:36→20:32)
[2016-09-10] MEDS: NICOTINE 21 MG/24 HOUR PATCH TD SCH (09:36)
[2016-09-10] MEDS: MULTIVITAMINS WITH MINERALS, THERAPEUTIC TABLET PO SCH (09:38)
[2016-09-10 16:23] VITALS: BP 127/62
[2016-09-10] MEDS: DIVALPROEX SODIUM 500 MG ER TABLET PO SCH (20:32)
[2016-09-11 00:50] VITALS: BP_SYST 123; BP_DIAS 78; BP_DIAS 79
[2016-09-11] MEDS: CloZAPine 100 MG TABLET PO SCH ×2 (09:07→20:09)
[2016-09-11] MEDS: MULTIVITAMINS WITH MINERALS, THERAPEUTIC TABLET PO SCH (09:07)
[2016-09-11] MEDS: TOPIRAMATE 25 MG TABLET PO SCH ×4 (09:07→20:09)
[2016-09-11] MEDS: NICOTINE 21 MG/24 HOUR PATCH TD SCH (09:08)
[2016-09-11 16:01] VITALS: BP 111/74
[2016-09-11] MEDS: DIVALPROEX SODIUM 500 MG ER TABLET PO SCH (20:10)
[2016-09-12 05:49] VITALS: BP 112/60
[2016-09-12] MEDS: MULTIVITAMINS WITH MINERALS, THERAPEUTIC TABLET PO SCH (09:10)
[2016-09-12] MEDS: TOPIRAMATE 25 MG TABLET PO SCH ×4 (09:10→20:13)
[2016-09-12] MEDS: CloZAPine 100 MG TABLET PO SCH ×2 (09:10→20:13)
[2016-09-12] MEDS: NICOTINE 21 MG/24 HOUR PATCH TD SCH (09:10)
[2016-09-12 16:06] VITALS: BP 129/71
[2016-09-12] MEDS: DIVALPROEX SODIUM 500 MG ER TABLET PO SCH (20:13)
[2016-09-13 06:03] VITALS: BP 106/70
[2016-09-13] MEDS: CloZAPine 100 MG TABLET PO SCH ×2 (09:38→20:09)
[2016-09-13] MEDS: MULTIVITAMINS WITH MINERALS, THERAPEUTIC TABLET PO SCH (09:38)
[2016-09-13] MEDS: TOPIRAMATE 25 MG TABLET PO SCH ×4 (09:38→20:08)
[2016-09-13] MEDS: NICOTINE 21 MG/24 HOUR PATCH TD SCH (09:38)
[2016-09-13 16:00] VITALS: BP 109/65
[2016-09-13] MEDS: DIVALPROEX SODIUM 500 MG ER TABLET PO SCH (20:08)
[2016-09-14 06:06] VITALS: BP 103/60
[2016-09-14] MEDS: TOPIRAMATE 25 MG TABLET PO SCH ×4 (08:30→20:40)
[2016-09-14] MEDS: MULTIVITAMINS WITH MINERALS, THERAPEUTIC TABLET PO SCH (08:30)
[2016-09-14] MEDS: CloZAPine 100 MG TABLET PO SCH ×2 (08:30→20:40)
[2016-09-14] MEDS: NICOTINE 21 MG/24 HOUR PATCH TD SCH (08:30)
[2016-09-14 09:01] VITALS: BP 106/60
[2016-09-14 16:00] VITALS: BP 123/69
[2016-09-14] MEDS: ACETAMINOPHEN 325 MG TABLET PO PRN (17:19)
[2016-09-14] MEDS: DIVALPROEX SODIUM 500 MG ER TABLET PO SCH (20:40)
[2016-09-15 02:20] VITALS: BP 113/62
[2016-09-15] MEDS: NICOTINE 21 MG/24 HOUR PATCH TD SCH ×2 (09:00→09:55)
[2016-09-15] MEDS: TOPIRAMATE 25 MG TABLET PO SCH ×4 (09:55→20:34)
[2016-09-15] MEDS: CloZAPine 100 MG TABLET PO SCH ×2 (09:56→20:34)
[2016-09-15] MEDS: MULTIVITAMINS WITH MINERALS, THERAPEUTIC TABLET PO SCH (09:56)
[2016-09-15 16:01] VITALS: BP 116/62
[2016-09-15] MEDS: ACETAMINOPHEN 325 MG TABLET PO PRN (16:05)
[2016-09-15] MEDS: DIVALPROEX SODIUM 500 MG ER TABLET PO SCH (20:34)
[2016-09-16 02:05] VITALS: BP 104/62
[2016-09-16] MEDS: CloZAPine 100 MG TABLET PO SCH ×2 (08:23→20:42)
[2016-09-16] MEDS: MULTIVITAMINS WITH MINERALS, THERAPEUTIC TABLET PO SCH (08:23)
[2016-09-16] MEDS: TOPIRAMATE 25 MG TABLET PO SCH ×4 (08:23→20:43)
[2016-09-16] MEDS: NICOTINE 21 MG/24 HOUR PATCH TD SCH (08:28)
[2016-09-16 09:05] LABS: BASOPHILS % (AUTO) 0.4 % (0.0-2.0); EOSINOPHILS % (AUTO) 2.6 % (1.0-6.0); HEMATOCRIT 38.8 % (36-46); HEMOGLOBIN 13.3 g/dL (12.0-16.0); LYMPHOCYTES # (AUTO) 4.8 K/uL (1.0-4.8); LYMPHOCYTES % (AUTO) 45.3 % (22.0-44.0); MEAN CORPUSCULAR HEMOGLOBIN 29.1 pg (26.0-34.0); MEAN CORPUSCULAR HGB CONC 34.3 G/dL (31.0-37.0); MEAN CORPUSCULAR VOLUME 85 fL (80-100); MONOCYTES % (AUTO) 9.1 % (2.0-9.0); NEUTROPHILS # (AUTO) 4.5 K/uL (1.8-7.7); NEUTROPHILS % (AUTO) 42.6 % (40.0-70.0); PLATELET COUNT (AUTO) 344 K/uL (150-450); RED BLOOD CELL COUNT(AUTO) 4.57 MIL/uL (4.00-5.20); RED CELL DISTRIBUTION WIDTH 13.5 % (11.5-14.5); WHITE BLOOD COUNT (AUTO) 10.5 K/uL (4.5-11.0)
[2016-09-16 16:01] VITALS: BP 116/75
[2016-09-16] MEDS: ACETAMINOPHEN 325 MG TABLET PO PRN (16:13)
[2016-09-16] MEDS: LORazepam 2 MG TABLET PO PRN (18:25)
[2016-09-16] MEDS: DIVALPROEX SODIUM 500 MG ER TABLET PO SCH (20:42)
[2016-09-16] MEDS: ZOLPIDEM TARTRATE 10 MG TABLET PO PRN (20:43)
[2016-09-17 01:07] VITALS: BP 104/63
[2016-09-17] MEDS: NICOTINE 21 MG/24 HOUR PATCH TD SCH (09:34)
[2016-09-17] MEDS: TOPIRAMATE 25 MG TABLET PO SCH ×4 (09:34→20:31)
[2016-09-17] MEDS: CloZAPine 100 MG TABLET PO SCH ×2 (09:34→20:31)
[2016-09-17] MEDS: MULTIVITAMINS WITH MINERALS, THERAPEUTIC TABLET PO SCH (09:34)
[2016-09-17 11:45] VITALS: BP 102/63
[2016-09-17 16:30] VITALS: BP 102/63
[2016-09-17] MEDS: DIVALPROEX SODIUM 500 MG ER TABLET PO SCH (20:31)
[2016-09-17] MEDS: ZOLPIDEM TARTRATE 10 MG TABLET PO PRN (20:55)
[2016-09-18 00:02] VITALS: BP 108/66
[2016-09-18] MEDS: TOPIRAMATE 25 MG TABLET PO SCH ×4 (09:06→20:18)
[2016-09-18] MEDS: MULTIVITAMINS WITH MINERALS, THERAPEUTIC TABLET PO SCH (09:06)
[2016-09-18] MEDS: CloZAPine 100 MG TABLET PO SCH ×2 (09:06→20:17)
[2016-09-18] MEDS: NICOTINE 21 MG/24 HOUR PATCH TD SCH (09:07)
[2016-09-18 16:08] VITALS: BP 125/79
[2016-09-18 18:05] VITALS: BP 120/78
[2016-09-18] MEDS: ACETAMINOPHEN 325 MG TABLET PO PRN (18:05)
[2016-09-18] MEDS: LORazepam 2 MG TABLET PO PRN (19:47)
[2016-09-18] MEDS: DIVALPROEX SODIUM 500 MG ER TABLET PO SCH (20:18)
[2016-09-18] MEDS: ZOLPIDEM TARTRATE 10 MG TABLET PO PRN (21:22)
[2016-09-19 01:22] VITALS: BP 104/62
[2016-09-19] MEDS: TOPIRAMATE 25 MG TABLET PO SCH ×4 (08:58→20:06)
[2016-09-19] MEDS: MULTIVITAMINS WITH MINERALS, THERAPEUTIC TABLET PO SCH (08:58)
[2016-09-19] MEDS: CloZAPine 100 MG TABLET PO SCH ×2 (08:58→20:06)
[2016-09-19] MEDS: NICOTINE 21 MG/24 HOUR PATCH TD SCH (08:58)
[2016-09-19] MEDS: LORazepam 2 MG TABLET PO PRN ×2 (10:41→16:02)
[2016-09-19] MEDS: ACETAMINOPHEN 325 MG TABLET PO PRN (16:02)
[2016-09-19 16:03] VITALS: BP 120/74
[2016-09-19] MEDS: DIVALPROEX SODIUM 500 MG ER TABLET PO SCH (20:06)
[2016-09-19] MEDS: ZOLPIDEM TARTRATE 10 MG TABLET PO PRN (20:06)
[2016-09-20 06:37] VITALS: BP 123/89
[2016-09-20] MEDS: MULTIVITAMINS WITH MINERALS, THERAPEUTIC TABLET PO SCH (08:49)
[2016-09-20] MEDS: TOPIRAMATE 25 MG TABLET PO SCH ×4 (08:50→20:35)
[2016-09-20] MEDS: NICOTINE 21 MG/24 HOUR PATCH TD SCH (08:50)
[2016-09-20] MEDS: CloZAPine 100 MG TABLET PO SCH ×2 (08:50→20:34)
[2016-09-20 16:05] VITALS: BP 109/63
[2016-09-20] MEDS: DIVALPROEX SODIUM 500 MG ER TABLET PO SCH (20:34)
[2016-09-21] MEDS: CloZAPine 100 MG TABLET PO SCH ×2 (08:30→20:30)
[2016-09-21] MEDS: NICOTINE 21 MG/24 HOUR PATCH TD SCH (08:30)
[2016-09-21] MEDS: TOPIRAMATE 25 MG TABLET PO SCH ×4 (08:30→20:30)
[2016-09-21] MEDS: MULTIVITAMINS WITH MINERALS, THERAPEUTIC TABLET PO SCH (08:30)
[2016-09-21 18:27] VITALS: BP 112/65
[2016-09-21] MEDS: DIVALPROEX SODIUM 500 MG ER TABLET PO SCH (20:30)
[2016-09-22 05:37] VITALS: BP 108/65
[2016-09-22] MEDS: NICOTINE 21 MG/24 HOUR PATCH TD SCH (08:44)
[2016-09-22] MEDS: TOPIRAMATE 25 MG TABLET PO SCH ×4 (08:44→20:52)
[2016-09-22] MEDS: CloZAPine 100 MG TABLET PO SCH ×2 (08:44→20:52)
[2016-09-22] MEDS: MULTIVITAMINS WITH MINERALS, THERAPEUTIC TABLET PO SCH (08:45)
[2016-09-22 16:04] VITALS: BP 121/84
[2016-09-22] MEDS: ZOLPIDEM TARTRATE 10 MG TABLET PO PRN (20:50)
[2016-09-22] MEDS: DIVALPROEX SODIUM 500 MG ER TABLET PO SCH (20:52)
[2016-09-23 00:02] VITALS: BP 108/63
[2016-09-23 08:21] LABS: BASOPHILS % (AUTO) 0.4 % (0.0-2.0); HEMATOCRIT 40.3 % (36-46); HEMOGLOBIN 13.5 g/dL (12.0-16.0); LYMPHOCYTES % (AUTO) 43.5 % (22.0-44.0); MEAN CORPUSCULAR HEMOGLOBIN 28.6 pg (26.0-34.0); MEAN CORPUSCULAR HGB CONC 33.5 G/dL (31.0-37.0); MEAN CORPUSCULAR VOLUME 85 fL (80-100); MONOCYTES # (AUTO) 1.4 K/uL (0.1-1.0); MONOCYTES % (AUTO) 9.9 % (2.0-9.0); NEUTROPHILS # (AUTO) 5.9 K/uL (1.8-7.7); NEUTROPHILS % (AUTO) 43.2 % (40.0-70.0); PLATELET COUNT (AUTO) 355 K/uL (150-450); RED BLOOD CELL COUNT(AUTO) 4.72 MIL/uL (4.00-5.20); RED CELL DISTRIBUTION WIDTH 12.8 % (11.5-14.5); WHITE BLOOD COUNT (AUTO) 13.7 K/uL (4.5-11.0)
[2016-09-23] MEDS: NICOTINE 21 MG/24 HOUR PATCH TD SCH (08:40)
[2016-09-23] MEDS: TOPIRAMATE 25 MG TABLET PO SCH ×4 (08:40→20:31)
[2016-09-23] MEDS: MULTIVITAMINS WITH MINERALS, THERAPEUTIC TABLET PO SCH (08:40)
[2016-09-23] MEDS: CloZAPine 100 MG TABLET PO SCH ×2 (08:40→20:31)
[2016-09-23 10:47] VITALS: BP 124/81
[2016-09-23 14:20] VITALS: BP 118/76
[2016-09-23] MEDS: ACETAMINOPHEN 325 MG TABLET PO PRN (14:20)
[2016-09-23 16:05] VITALS: BP 115/67
[2016-09-23] MEDS: LORazepam 2 MG TABLET PO PRN (17:36)
[2016-09-23] MEDS: DIVALPROEX SODIUM 500 MG ER TABLET PO SCH (20:30)
[2016-09-23] MEDS: ZOLPIDEM TARTRATE 10 MG TABLET PO PRN (21:24)
[2016-09-24 06:31] VITALS: BP 104/61
[2016-09-24] MEDS: MULTIVITAMINS WITH MINERALS, THERAPEUTIC TABLET PO SCH (08:21)
[2016-09-24] MEDS: TOPIRAMATE 25 MG TABLET PO SCH ×4 (08:21→20:37)
[2016-09-24] MEDS: CloZAPine 100 MG TABLET PO SCH ×2 (08:22→20:37)
[2016-09-24] MEDS: NICOTINE 21 MG/24 HOUR PATCH TD SCH ×2 (08:22→08:42)
[2016-09-24 08:38] LABS: BASOPHILS % (AUTO) 0.2 % (0.0-2.0); EOSINOPHILS % (AUTO) 2.5 % (1.0-6.0); HEMATOCRIT 39.9 % (36-46); HEMOGLOBIN 13.2 g/dL (12.0-16.0); LYMPHOCYTES # (AUTO) 5.3 K/uL (1.0-4.8); LYMPHOCYTES % (AUTO) 43.4 % (22.0-44.0); MEAN CORPUSCULAR HEMOGLOBIN 28.4 pg (26.0-34.0); MEAN CORPUSCULAR HGB CONC 33.2 G/dL (31.0-37.0); MEAN CORPUSCULAR VOLUME 86 fL (80-100); MONOCYTES # (AUTO) 1.2 K/uL (0.1-1.0); NEUTROPHILS # (AUTO) 5.4 K/uL (1.8-7.7); NEUTROPHILS % (AUTO) 43.9 % (40.0-70.0); PLATELET COUNT (AUTO) 356 K/uL (150-450); RED BLOOD CELL COUNT(AUTO) 4.67 MIL/uL (4.00-5.20); RED CELL DISTRIBUTION WIDTH 13.3 % (11.5-14.5); WHITE BLOOD COUNT (AUTO) 12.3 K/uL (4.5-11.0)
[2016-09-24 16:17] VITALS: BP 105/61
[2016-09-24] MEDS: LORazepam 2 MG TABLET PO PRN (17:56)
[2016-09-24] MEDS: DIVALPROEX SODIUM 500 MG ER TABLET PO SCH (20:37)
[2016-09-25 05:32] VITALS: BP 109/69
[2016-09-25 08:01] VITALS: BP 108/64
[2016-09-25] MEDS: NICOTINE 21 MG/24 HOUR PATCH TD SCH (09:01)
[2016-09-25] MEDS: TOPIRAMATE 25 MG TABLET PO SCH ×4 (09:01→20:20)
[2016-09-25] MEDS: CloZAPine 100 MG TABLET PO SCH ×2 (09:01→20:20)
[2016-09-25] MEDS: MULTIVITAMINS WITH MINERALS, THERAPEUTIC TABLET PO SCH (09:01)
[2016-09-25] MEDS: LORazepam 2 MG TABLET PO PRN ×2 (14:43→19:07)
[2016-09-25 16:02] VITALS: BP 113/73
[2016-09-25] MEDS: DIVALPROEX SODIUM 500 MG ER TABLET PO SCH (20:20)
[2016-09-26 00:13] VITALS: BP 105/62
[2016-09-26 08:27] VITALS: BP 103/60
[2016-09-26] MEDS: TOPIRAMATE 25 MG TABLET PO SCH ×4 (08:56→20:03)
[2016-09-26] MEDS: CloZAPine 100 MG TABLET PO SCH ×2 (08:56→20:03)
[2016-09-26] MEDS: MULTIVITAMINS WITH MINERALS, THERAPEUTIC TABLET PO SCH (08:56)
[2016-09-26] MEDS: NICOTINE 21 MG/24 HOUR PATCH TD SCH (08:57)
[2016-09-26] MEDS: LORazepam 2 MG TABLET PO PRN ×2 (14:16→19:38)
[2016-09-26 16:08] VITALS: BP 121/69
[2016-09-26] MEDS: DIVALPROEX SODIUM 500 MG ER TABLET PO SCH (20:03)
[2016-09-27 00:02] VITALS: BP 106/62
[2016-09-27] MEDS: CloZAPine 100 MG TABLET PO SCH ×2 (08:48→20:41)
[2016-09-27] MEDS: TOPIRAMATE 25 MG TABLET PO SCH ×4 (08:48→21:12)
[2016-09-27] MEDS: MULTIVITAMINS WITH MINERALS, THERAPEUTIC TABLET PO SCH (08:48)
[2016-09-27] MEDS: NICOTINE 21 MG/24 HOUR PATCH TD SCH (08:49)
[2016-09-27] MEDS: LORazepam 2 MG TABLET PO PRN (14:08)
[2016-09-27 16:06] VITALS: BP 106/72
[2016-09-27] MEDS: DIVALPROEX SODIUM 500 MG ER TABLET PO SCH (20:41)
[2016-09-27] MEDS: ZOLPIDEM TARTRATE 10 MG TABLET PO PRN (20:42)
[2016-09-28 08:02] VITALS: BP 112/67
[2016-09-28] MEDS: CloZAPine 100 MG TABLET PO SCH ×2 (08:34→20:58)
[2016-09-28] MEDS: TOPIRAMATE 25 MG TABLET PO SCH ×4 (08:34→20:58)
[2016-09-28] MEDS: MULTIVITAMINS WITH MINERALS, THERAPEUTIC TABLET PO SCH (08:34)
[2016-09-28] MEDS: NICOTINE 21 MG/24 HOUR PATCH TD SCH (08:35)
[2016-09-28] MEDS: LORazepam 2 MG TABLET PO PRN ×3 (10:52→20:58)
[2016-09-28 16:01] VITALS: BP 117/73
[2016-09-28] MEDS: DIVALPROEX SODIUM 500 MG ER TABLET PO SCH (20:57)
[2016-09-29] MEDS: TOPIRAMATE 25 MG TABLET PO SCH ×4 (08:15→20:27)
[2016-09-29] MEDS: MULTIVITAMINS WITH MINERALS, THERAPEUTIC TABLET PO SCH (08:15)
[2016-09-29] MEDS: CloZAPine 100 MG TABLET PO SCH ×2 (08:15→20:27)
[2016-09-29] MEDS: NICOTINE 21 MG/24 HOUR PATCH TD SCH (08:22)
[2016-09-29 16:05] VITALS: BP 106/64
[2016-09-29] MEDS: DIVALPROEX SODIUM 500 MG ER TABLET PO SCH (20:27)
[2016-09-30 00:02] VITALS: BP 128/67
[2016-09-30] MEDS: MULTIVITAMINS WITH MINERALS, THERAPEUTIC TABLET PO SCH (08:45)
[2016-09-30] MEDS: CloZAPine 100 MG TABLET PO SCH ×2 (08:45→20:38)
[2016-09-30] MEDS: TOPIRAMATE 25 MG TABLET PO SCH ×4 (08:46→20:38)
[2016-09-30] MEDS: NICOTINE 21 MG/24 HOUR PATCH TD SCH (08:54)
[2016-09-30] MEDS: LORazepam 2 MG TABLET PO PRN (14:47)
[2016-09-30 16:01] VITALS: BP 126/66
[2016-09-30] MEDS: DIVALPROEX SODIUM 500 MG ER TABLET PO SCH (20:38)
[2016-10-01 00:33] VITALS: BP 111/67
[2016-10-01 07:37] LABS: BASOPHILS % (AUTO) 0.3 % (0.0-2.0); EOSINOPHILS % (AUTO) 1.7 % (1.0-6.0); HEMOGLOBIN 13.1 g/dL (12.0-16.0); LYMPHOCYTES # (AUTO) 4.9 K/uL (1.0-4.8); LYMPHOCYTES % (AUTO) 32.1 % (22.0-44.0); MEAN CORPUSCULAR HGB CONC 34.5 G/dL (31.0-37.0); MEAN CORPUSCULAR VOLUME 84 fL (80-100); MONOCYTES # (AUTO) 1.3 K/uL (0.1-1.0); MONOCYTES % (AUTO) 8.3 % (2.0-9.0); NEUTROPHILS # (AUTO) 8.9 K/uL (1.8-7.7); NEUTROPHILS % (AUTO) 57.6 % (40.0-70.0); PLATELET COUNT (AUTO) 357 K/uL (150-450); RED BLOOD CELL COUNT(AUTO) 4.52 MIL/uL (4.00-5.20); RED CELL DISTRIBUTION WIDTH 13.1 % (11.5-14.5); WHITE BLOOD COUNT (AUTO) 15.4 K/uL (4.5-11.0)
[2016-10-01 08:33] VITALS: BP 121/72
[2016-10-01] MEDS: NICOTINE 21 MG/24 HOUR PATCH TD SCH (09:11)
[2016-10-01] MEDS: CloZAPine 100 MG TABLET PO SCH ×2 (09:11→20:31)
[2016-10-01] MEDS: TOPIRAMATE 25 MG TABLET PO SCH ×4 (09:11→20:30)
[2016-10-01] MEDS: MULTIVITAMINS WITH MINERALS, THERAPEUTIC TABLET PO SCH (09:13)
[2016-10-01 16:07] VITALS: BP 123/68
[2016-10-01] MEDS: DIVALPROEX SODIUM 500 MG ER TABLET PO SCH (20:31)
[2016-10-01] MEDS: ZOLPIDEM TARTRATE 10 MG TABLET PO PRN (22:59)
[2016-10-02 00:02] VITALS: BP 109/60
[2016-10-02] MEDS: CloZAPine 100 MG TABLET PO SCH ×2 (09:22→20:42)
[2016-10-02] MEDS: TOPIRAMATE 25 MG TABLET PO SCH ×4 (09:22→20:41)
[2016-10-02] MEDS: NICOTINE 21 MG/24 HOUR PATCH TD SCH (09:22)
[2016-10-02] MEDS: MULTIVITAMINS WITH MINERALS, THERAPEUTIC TABLET PO SCH (09:22)
[2016-10-02] MEDS: LORazepam 2 MG TABLET PO PRN ×2 (13:58→18:07)
[2016-10-02 16:29] VITALS: BP 122/76
[2016-10-02] MEDS: DIVALPROEX SODIUM 500 MG ER TABLET PO SCH (20:42)
[2016-10-02] MEDS: ZOLPIDEM TARTRATE 10 MG TABLET PO PRN (21:12)
[2016-10-03 05:59] VITALS: BP 119/64
[2016-10-03 08:15] VITALS: BP 103/75
[2016-10-03] MEDS: NICOTINE 21 MG/24 HOUR PATCH TD SCH (10:15)
[2016-10-03] MEDS: MULTIVITAMINS WITH MINERALS, THERAPEUTIC TABLET PO SCH (10:15)
[2016-10-03] MEDS: CloZAPine 100 MG TABLET PO SCH ×2 (10:16→20:07)
[2016-10-03] MEDS: TOPIRAMATE 25 MG TABLET PO SCH ×4 (10:16→21:00)
[2016-10-03] MEDS: LORazepam 2 MG TABLET PO PRN ×2 (11:20→18:10)
[2016-10-03 16:05] VITALS: BP 125/68
[2016-10-03] MEDS: DIVALPROEX SODIUM 500 MG ER TABLET PO SCH (20:07)
[2016-10-03] MEDS: ZOLPIDEM TARTRATE 10 MG TABLET PO PRN (21:01)
[2016-10-04 00:05] VITALS: BP 123/76
[2016-10-04 08:21] VITALS: BP 119/71
[2016-10-04] MEDS: TOPIRAMATE 25 MG TABLET PO SCH ×4 (09:12→21:15)
[2016-10-04] MEDS: MULTIVITAMINS WITH MINERALS, THERAPEUTIC TABLET PO SCH (09:12)
[2016-10-04] MEDS: CloZAPine 100 MG TABLET PO SCH ×2 (09:12→20:43)
[2016-10-04] MEDS: NICOTINE 21 MG/24 HOUR PATCH TD SCH (09:46)
[2016-10-04] MEDS: LORazepam 2 MG TABLET PO PRN ×2 (14:49→20:06)
[2016-10-04 16:14] VITALS: BP 121/68
[2016-10-04] MEDS: DIVALPROEX SODIUM 500 MG ER TABLET PO SCH (20:42)
[2016-10-05 02:32] VITALS: BP 123/71
[2016-10-05] MEDS: GuaiFENesin/D-METHORPHAN [SUGAR-FREE] 200-20MG/10 ML SYRUP UDCUP PO PRN (04:42)
[2016-10-05 08:22] VITALS: BP 113/53
[2016-10-05] MEDS: MULTIVITAMINS WITH MINERALS, THERAPEUTIC TABLET PO SCH (08:43)
[2016-10-05] MEDS: NICOTINE 21 MG/24 HOUR PATCH TD SCH (08:43)
[2016-10-05] MEDS: TOPIRAMATE 25 MG TABLET PO SCH ×4 (08:43→20:44)
[2016-10-05] MEDS: CloZAPine 100 MG TABLET PO SCH ×2 (08:43→20:44)
[2016-10-05 16:11] VITALS: BP 118/67
[2016-10-05] MEDS: LORazepam 2 MG TABLET PO PRN (16:52)
[2016-10-05] MEDS: DIVALPROEX SODIUM 500 MG ER TABLET PO SCH (20:45)
[2016-10-06 03:21] VITALS: BP 101/62
[2016-10-06 08:19] VITALS: BP 111/62
[2016-10-06] MEDS: TOPIRAMATE 25 MG TABLET PO SCH ×4 (08:35→20:36)
[2016-10-06] MEDS: MULTIVITAMINS WITH MINERALS, THERAPEUTIC TABLET PO SCH (08:35)
[2016-10-06] MEDS: CloZAPine 100 MG TABLET PO SCH ×2 (08:35→20:36)
[2016-10-06] MEDS: NICOTINE 21 MG/24 HOUR PATCH TD SCH (08:36)
[2016-10-06] MEDS: LORazepam 2 MG TABLET PO PRN (13:32)
[2016-10-06] MEDS: GuaiFENesin/D-METHORPHAN [SUGAR-FREE] 200-20MG/10 ML SYRUP UDCUP PO PRN ×2 (13:58→23:59)
[2016-10-06] MEDS: ACETAMINOPHEN 325 MG TABLET PO PRN ×2 (13:58→20:55)
[2016-10-06 16:02] VITALS: BP 109/61
[2016-10-06] MEDS: DIVALPROEX SODIUM 500 MG ER TABLET PO SCH (20:36)
[2016-10-06] MEDS: ZOLPIDEM TARTRATE 10 MG TABLET PO PRN (21:17)
[2016-10-07 00:04] VITALS: BP 123/79
[2016-10-07] MEDS: MULTIVITAMINS WITH MINERALS, THERAPEUTIC TABLET PO SCH (09:43)
[2016-10-07] MEDS: CloZAPine 100 MG TABLET PO SCH ×2 (09:43→20:31)
[2016-10-07] MEDS: TOPIRAMATE 25 MG TABLET PO SCH ×4 (09:44→20:31)
[2016-10-07] MEDS: NICOTINE 21 MG/24 HOUR PATCH TD SCH (09:44)
[2016-10-07] MEDS: MAGNESIUM HYDROXIDE SUSPENSION 30 ML UDCUP PO PRN (09:48)
[2016-10-07 12:45] VITALS: BP 114/60
[2016-10-07] MEDS: LORazepam 2 MG TABLET PO PRN ×2 (13:28→18:33)
[2016-10-07 16:02] VITALS: BP 113/67
[2016-10-07] MEDS: ACETAMINOPHEN 325 MG TABLET PO PRN (18:39)
[2016-10-07] MEDS: DIVALPROEX SODIUM 500 MG ER TABLET PO SCH (20:31)
[2016-10-08 00:45] VITALS: BP 114/60
[2016-10-08 08:12] LABS: BASOPHILS % (AUTO) 0.2 % (0.0-2.0); EOSINOPHILS % (AUTO) 2.7 % (1.0-6.0); HEMATOCRIT 39.5 % (36-46); HEMOGLOBIN 13.4 g/dL (12.0-16.0); LYMPHOCYTES # (AUTO) 5.2 K/uL (1.0-4.8); LYMPHOCYTES % (AUTO) 46.6 % (22.0-44.0); MEAN CORPUSCULAR HEMOGLOBIN 28.8 pg (26.0-34.0); MEAN CORPUSCULAR HGB CONC 33.8 G/dL (31.0-37.0); MEAN CORPUSCULAR VOLUME 85 fL (80-100); MONOCYTES # (AUTO) 1.1 K/uL (0.1-1.0); MONOCYTES % (AUTO) 9.5 % (2.0-9.0); NEUTROPHILS # (AUTO) 4.5 K/uL (1.8-7.7); PLATELET COUNT (AUTO) 343 K/uL (150-450); RED BLOOD CELL COUNT(AUTO) 4.64 MIL/uL (4.00-5.20); RED CELL DISTRIBUTION WIDTH 13.5 % (11.5-14.5); WHITE BLOOD COUNT (AUTO) 11.1 K/uL (4.5-11.0)
[2016-10-08] MEDS: MULTIVITAMINS WITH MINERALS, THERAPEUTIC TABLET PO SCH (08:53)
[2016-10-08] MEDS: CloZAPine 100 MG TABLET PO SCH ×2 (08:53→21:00)
[2016-10-08] MEDS: TOPIRAMATE 25 MG TABLET PO SCH ×4 (08:53→21:00)
[2016-10-08] MEDS: NICOTINE 21 MG/24 HOUR PATCH TD SCH (08:54)
[2016-10-08] MEDS: LORazepam 2 MG TABLET PO PRN ×2 (11:34→18:55)
[2016-10-08 16:06] VITALS: BP 122/78
[2016-10-08] MEDS: GuaiFENesin/D-METHORPHAN [SUGAR-FREE] 200-20MG/10 ML SYRUP UDCUP PO PRN (18:52)
[2016-10-08] MEDS: DIVALPROEX SODIUM 500 MG ER TABLET PO SCH (21:01)
[2016-10-09 06:39] VITALS: BP 117/59
[2016-10-09] MEDS: MULTIVITAMINS WITH MINERALS, THERAPEUTIC TABLET PO SCH (09:04)
[2016-10-09] MEDS: TOPIRAMATE 25 MG TABLET PO SCH ×4 (09:04→20:06)
[2016-10-09] MEDS: CloZAPine 100 MG TABLET PO SCH ×2 (09:05→20:06)
[2016-10-09] MEDS: NICOTINE 21 MG/24 HOUR PATCH TD SCH (09:10)
[2016-10-09 14:47] VITALS: BP 123/80
[2016-10-09] MEDS ORDERED: CLOZ100 PO ×2 (15:28)
[2016-10-09] MEDS ORDERED: TOPI25 PO (15:28)
[2016-10-09] MEDS ORDERED: DIVA500T52 PO (15:28)
[2016-10-09 16:02] VITALS: BP 114/68
[2016-10-09] MEDS: LORazepam 2 MG TABLET PO PRN (17:51)
[2016-10-09] MEDS: DIVALPROEX SODIUM 500 MG ER TABLET PO SCH (20:06)
[2016-10-09] MEDS: ZOLPIDEM TARTRATE 10 MG TABLET PO PRN (20:36)
[2016-10-10 00:05] VITALS: BP 116/62
[2016-10-10 08:01] VITALS: BP 109/67
[2016-10-10] MEDS: CloZAPine 100 MG TABLET PO SCH ×2 (08:22→20:41)
[2016-10-10] MEDS: TOPIRAMATE 25 MG TABLET PO SCH ×4 (08:22→20:41)
[2016-10-10] MEDS: MULTIVITAMINS WITH MINERALS, THERAPEUTIC TABLET PO SCH (08:22)
[2016-10-10] MEDS: NICOTINE 21 MG/24 HOUR PATCH TD SCH (08:22)
[2016-10-10 16:08] VITALS: BP 122/79
[2016-10-10] MEDS: LORazepam 2 MG TABLET PO PRN (16:30)
[2016-10-10] MEDS: DIVALPROEX SODIUM 500 MG ER TABLET PO SCH (20:41)
[2016-10-11 00:02] VITALS: BP 103/67
[2016-10-11 08:04] VITALS: BP 117/59
[2016-10-11] MEDS: CloZAPine 100 MG TABLET PO SCH ×2 (09:27→20:29)
[2016-10-11] MEDS: TOPIRAMATE 25 MG TABLET PO SCH ×4 (09:27→20:30)
[2016-10-11] MEDS: NICOTINE 21 MG/24 HOUR PATCH TD SCH (09:27)
[2016-10-11] MEDS: MULTIVITAMINS WITH MINERALS, THERAPEUTIC TABLET PO SCH (09:27)
[2016-10-11] MEDS: LORazepam 2 MG TABLET PO PRN (13:22)
[2016-10-11 16:13] VITALS: BP 118/89
[2016-10-11] MEDS: DIVALPROEX SODIUM 500 MG ER TABLET PO SCH (20:30)
[2016-10-12 00:24] VITALS: BP 102/72
[2016-10-12 08:03] VITALS: BP 129/87
[2016-10-12] MEDS: NICOTINE 21 MG/24 HOUR PATCH TD SCH (08:56)
[2016-10-12] MEDS: MULTIVITAMINS WITH MINERALS, THERAPEUTIC TABLET PO SCH (08:57)
[2016-10-12] MEDS: TOPIRAMATE 25 MG TABLET PO SCH ×4 (08:57→20:37)
[2016-10-12] MEDS: CloZAPine 100 MG TABLET PO SCH ×2 (08:57→20:38)
[2016-10-12] MEDS: LORazepam 2 MG TABLET PO PRN (12:15)
[2016-10-12 13:33] LABS: CLOZAPINE 585 ng/mL (350-650); CLOZAPINE & NORCLOZAPINE 732 ng/mL; NORCLOZAPINE 147 ng/mL (Not Estab.)
[2016-10-12 16:09] VITALS: BP 118/64
[2016-10-12] MEDS: DIVALPROEX SODIUM 500 MG ER TABLET PO SCH (20:38)
[2016-10-12] MEDS: ZOLPIDEM TARTRATE 10 MG TABLET PO PRN (21:03)
[2016-10-13 03:02] VITALS: BP 107/71
[2016-10-13 08:19] VITALS: BP 121/68
[2016-10-13] MEDS: TOPIRAMATE 25 MG TABLET PO SCH (08:57)
[2016-10-13] MEDS: MULTIVITAMINS WITH MINERALS, THERAPEUTIC TABLET PO SCH (08:57)
[2016-10-13] MEDS: CloZAPine 100 MG TABLET PO SCH (08:58)
[2016-10-13] MEDS: NICOTINE 21 MG/24 HOUR PATCH TD SCH (08:58)
[2016-10-13] MEDS ORDERED: ZOLP10 PO (11:12)
[2016-10-13] MEDS ORDERED: LORA2TAB2 PO (11:13)
[2016-10-13] MEDS ORDERED: HALO5 PO (11:14)
== END 2016-10-13 12:40 | DRG 885 ==
LOC: B2X 15:16
PROVIDERS: ADMIT Psychiatry & Neurology Psychiatry; ATTEND Psychiatry & Neurology Psychiatry
PROC: 3E0234Z Introduction of Serum, Toxoid and Vaccine into Muscle, Percutaneous Approach (ICD-10-PCS; principal; 2016-05-09)
DX: F25.0 Schizoaffective disorder, bipolar type (principal); J20.8 Acute bronchitis due to other specified organisms; R31.9 Hematuria, unspecified; R03.0 Elevated blood-pressure reading, without diagnosis of hypertension; K02.9 Dental caries, unspecified; E78.1 Pure hyperglyceridemia; E66.9 Obesity, unspecified; F41.9 Anxiety disorder, unspecified; G47.00 Insomnia, unspecified; F19.10 Other psychoactive substance abuse, uncomplicated; F17.210 Nicotine dependence, cigarettes, uncomplicated; F12.90 Cannabis use, unspecified, uncomplicated; Z68.30 Body mass index [BMI] 30.0-30.9, adult; Z91.14 Patient's other noncompliance with medication regimen; Z23 Encounter for immunization; Z79.899 Other long term (current) drug therapy; Z71.89 Other specified counseling
CPT/HCPCS: 71020; 80074; 80159; 82306; 82607; 82746; 83036; 83735; 84439; 84443; 86592; 87081; 90471; G0479; G0480; J2358

== ENCOUNTER 2019-02-10 12:34 | Inpatient (IN) | payer MEDICARE ==
[~2019-02-10] VITALS: Ht 170.2 cm; Wt 72.2 kg
[~2019-02-10 12:34] MED LIST changes: +CLOZ100 PO; +DIVA500T52 PO; -RISP.5 PO; +TOPI25 PO
[2019-02-10] MEDS ORDERED: CLOZ100 PO (13:05)
[2019-02-10 13:09] LABS: BASOPHILS % (AUTO) 0.6 % (0.0-2.0); EOSINOPHILS % (AUTO) 1.3 % (1.0-6.0); HEMATOCRIT 38.5 % (36-46); HEMOGLOBIN 13.1 g/dL (12.0-16.0); LYMPHOCYTES # (AUTO) 4.2 K/uL (1.0-4.8); MEAN CORPUSCULAR HEMOGLOBIN 29.1 pg (26.0-34.0); MEAN CORPUSCULAR HGB CONC 33.9 G/dL (31.0-37.0); MEAN CORPUSCULAR VOLUME 86 fL (80-100); MONOCYTES # (AUTO) 1.6 K/uL (0.1-1.0); MONOCYTES % (AUTO) 13.4 % (2.0-9.0); NEUTROPHILS # (AUTO) 5.9 K/uL (1.8-7.7); NEUTROPHILS % (AUTO) 49.7 % (40.0-70.0); PLATELET COUNT (AUTO) 369 K/uL (150-450); RED BLOOD CELL COUNT(AUTO) 4.48 MIL/uL (4.00-5.20); RED CELL DISTRIBUTION WIDTH 13.8 % (11.5-14.5)
[2019-02-10 13:18] LABS: ANION GAP 9 mmol/L (8-16); CALCIUM, TOTAL 8.6 mg/dL (8.8-10.5); CARBON DIOXIDE 24 mmol/L (22-29); CHLORIDE 109 mmol/L (98-107); CREATININE 0.62 mg/dL (0.60-1.30); GLOMERULAR FILTR. RATE CALC > 60 mL/min (>60); GLUCOSE,RANDOM 69 mg/dL (70-110); POTASSIUM 3.3 mmol/L (3.5-5.1); SODIUM SERUM 142 mmol/L (136-145); UREA NITROGEN, BLOOD 12 mg/dL (7-18)
[2019-02-10 13:25] LABS: AMPHET/METH SCREEN,URINE POSITIVE (NEGATIVE); BARBITURATE SCREEN, URINE NEGATIVE (NEGATIVE); BENZODIAZEPINES SCREEN,URINE NEGATIVE (NEGATIVE); CANNABINOID SCREEN,URINE NEGATIVE (NEGATIVE); COCAINE SCREEN,URINE NEGATIVE (NEGATIVE); METHADONE SCREEN, URINE NEGATIVE (NEGATIVE); OPIATE SCREEN,URINE NEGATIVE (NEGATIVE)
[2019-02-10 13:26] LABS: PHENCYCLIDINE SCREEN,URINE NEGATIVE (NEGATIVE)
[2019-02-10 13:32] LABS: ALANINE AMINOTRANSFERASE 16 U/L (12-78); ALBUMIN 3.5 g/dL (3.4-5.0); ALKALINE PHOSPHATASE 72 U/L (46-116); ASPARTATE AMINOTRANSFERASE 14 U/L (15-37); BILIRUBIN,TOTAL 0.3 mg/dL (0.1-1.0); HCG,QUANTITATIVE < 1 mIU/mL (0-6); TOTAL PROTEIN, SERUM 7.5 g/dL (6.4-8.2)
[2019-02-10] MEDS ORDERED: LORazepam 1 MG TABLET PO ONE (13:45)
[2019-02-10 13:51] LABS: VALPROIC ACID 55 mcg/mL (50-100)
[2019-02-10] MEDS ORDERED: ZOLPIDEM TARTRATE 10 MG TABLET PO PRN (16:30)
[2019-02-10] MEDS: HALOPERIDOL 5 MG TABLET PO PRN (18:25)
[2019-02-10] MEDS: LORazepam 2 MG TABLET PO PRN (18:25)
[2019-02-10] MEDS ORDERED: POTASSIUM CHLORIDE 20 MEQ ER TABLET PO ONE (19:00)
[2019-02-10 19:30] VITALS: BP 123/76
[2019-02-11 01:30] VITALS: BP 105/64
[2019-02-11] MEDS: CloZAPine 100 MG TABLET PO SCH ×2 (12:54→21:01)
[2019-02-11] MEDS: TOPIRAMATE 25 MG TABLET PO SCH ×3 (13:00→21:01)
[2019-02-11 16:36] VITALS: BP 110/75
[2019-02-11] MEDS: DIVALPROEX SODIUM 500 MG ER TABLET PO SCH (21:01)
[2019-02-12 00:22] VITALS: BP 106/56
[2019-02-12 08:41] VITALS: BP 113/73
[2019-02-12] MEDS: CloZAPine 100 MG TABLET PO SCH ×2 (08:46→20:14)
[2019-02-12] MEDS: TOPIRAMATE 25 MG TABLET PO SCH ×4 (08:46→20:15)
[2019-02-12] MEDS ORDERED: POTASSIUM CHLORIDE 20 MEQ ER TABLET PO ONE (09:30)
[2019-02-12 16:32] VITALS: BP 100/61
[2019-02-12] MEDS: DIVALPROEX SODIUM 500 MG ER TABLET PO SCH (20:15)
[2019-02-13 06:02] VITALS: BP 108/72
[2019-02-13] MEDS: TOPIRAMATE 25 MG TABLET PO SCH ×4 (09:10→21:21)
[2019-02-13] MEDS: CloZAPine 100 MG TABLET PO SCH ×2 (09:11→21:21)
[2019-02-13 16:00] VITALS: BP 113/70
[2019-02-13] MEDS: DIVALPROEX SODIUM 500 MG ER TABLET PO SCH (21:21)
[2019-02-14 06:57] VITALS: BP 110/68
[2019-02-14 08:19] VITALS: BP 130/61
[2019-02-14] MEDS: CloZAPine 100 MG TABLET PO SCH ×2 (09:26→21:21)
[2019-02-14] MEDS: TOPIRAMATE 25 MG TABLET PO SCH ×4 (09:26→21:21)
[2019-02-14] MEDS: LORazepam 2 MG TABLET PO PRN ×2 (09:26→16:59)
[2019-02-14] MEDS: HALOPERIDOL 5 MG TABLET PO PRN ×2 (09:26→16:59)
[2019-02-14] MEDS: DIVALPROEX SODIUM 500 MG ER TABLET PO SCH (21:21)
[2019-02-15 08:10] LABS: BASOPHILS % (AUTO) 0.4 % (0.0-2.0); EOSINOPHILS % (AUTO) 2.4 % (1.0-6.0); HEMATOCRIT 43.2 % (36-46); HEMOGLOBIN 14.6 g/dL (12.0-16.0); LYMPHOCYTES # (AUTO) 4.8 K/uL (1.0-4.8); LYMPHOCYTES % (AUTO) 44.6 % (22.0-44.0); MEAN CORPUSCULAR HEMOGLOBIN 29.3 pg (26.0-34.0); MEAN CORPUSCULAR HGB CONC 33.8 G/dL (31.0-37.0); MEAN CORPUSCULAR VOLUME 87 fL (80-100); MONOCYTES # (AUTO) 0.9 K/uL (0.1-1.0); MONOCYTES % (AUTO) 8.1 % (2.0-9.0); NEUTROPHILS # (AUTO) 4.7 K/uL (1.8-7.7); NEUTROPHILS % (AUTO) 44.5 % (40.0-70.0); PLATELET COUNT (AUTO) 388 K/uL (150-450); RED BLOOD CELL COUNT(AUTO) 4.98 MIL/uL (4.00-5.20); RED CELL DISTRIBUTION WIDTH 13.7 % (11.5-14.5)
[2019-02-15 08:27] LABS: ANION GAP 11 mmol/L (8-16); CALCIUM, TOTAL 9.2 mg/dL (8.8-10.5); CARBON DIOXIDE 23 mmol/L (22-29); CHLORIDE 107 mmol/L (98-107); CHOL/HDL RATIO 2.7 (3.9-5.7); CHOLESTEROL 129 mg/dL (131-200); CREATINE KINASE, TOTAL ONLY 29 U/L (26-192); CREATININE 0.63 mg/dL (0.60-1.30); GLOMERULAR FILTR. RATE CALC > 60 mL/min (>60); GLUCOSE,RANDOM 76 mg/dL (70-110); HDL CHOLESTEROL 48 mg/dL (40-60); LDL CHOL (CALC.) 63 mg/dL (0-130); POTASSIUM 4.2 mmol/L (3.5-5.1); SODIUM SERUM 141 mmol/L (136-145); TRIGLYCERIDES 88 mg/dL (15-150); UREA NITROGEN, BLOOD 16 mg/dL (7-18)
[2019-02-15] MEDS: HALOPERIDOL 5 MG TABLET PO PRN (09:11)
[2019-02-15] MEDS: LORazepam 2 MG TABLET PO PRN (09:11)
[2019-02-15] MEDS: CloZAPine 100 MG TABLET PO SCH ×2 (09:11→20:51)
[2019-02-15] MEDS: TOPIRAMATE 25 MG TABLET PO SCH ×4 (09:11→20:51)
[2019-02-15 20:25] VITALS: BP 110/58
[2019-02-15] MEDS: DIVALPROEX SODIUM 500 MG ER TABLET PO SCH (20:50)
[2019-02-16 00:35] VITALS: BP 120/80
[2019-02-16] MEDS: TOPIRAMATE 25 MG TABLET PO SCH (09:05)
[2019-02-16] MEDS: CloZAPine 100 MG TABLET PO SCH (09:05)
[2019-02-16] MEDS: LORazepam 2 MG TABLET PO PRN (09:05)
[2019-02-16] MEDS ORDERED: TOPI25 PO (11:05)
[2019-02-16] MEDS ORDERED: CLOZ100 PO ×2 (11:05)
[2019-02-16] MEDS ORDERED: DIVA500T52 PO (11:05)
== END 2019-02-16 12:30 | disposition home or self-care (01) | DRG 885 ==
LOC: EMS 12:34 → B2X 17:06
PROVIDERS: ADMIT Psychiatry & Neurology Psychiatry; ATTEND Psychiatry & Neurology Child & Adolescent Psychiatry
DX: F20.0 Paranoid schizophrenia (principal); F15.90 Other stimulant use, unspecified, uncomplicated; D72.828 Other elevated white blood cell count; E87.6 Hypokalemia; F17.210 Nicotine dependence, cigarettes, uncomplicated
CPT/HCPCS: 83735; 87081; G0480

== ENCOUNTER 2025-01-03 14:06 | Emergency (ER) | payer MEDICARE, MEDICAID ==
[~2025-01-03] VITALS: Ht 167.6 cm; Wt 86.4 kg
[~2025-01-03 14:06] MED LIST changes: -CLOZ100 PO; +CLOZ100T12 PO; +DIVA-153 PO; -DIVA500T52 PO; +TOPI-257 PO; -TOPI25 PO
[2025-01-03 14:10] VITALS: TEMP 98.1
[2025-01-03] MEDS ORDERED: TOPI-257 PO (15:26)
[2025-01-03] MEDS ORDERED: MULT-1203 PO (15:26)
[2025-01-03] MEDS ORDERED: DIVA-112 PO (15:26)
[2025-01-03] MEDS ORDERED: PROP20TA18 PO (15:26)
[2025-01-03] MEDS ORDERED: CARI3CAP PO (15:26)
[2025-01-03] MEDS ORDERED: CHOL25TA4 PO (15:26)
[2025-01-03] MEDS ORDERED: BENZ-247 PO (15:26)
[2025-01-03] MEDS ORDERED: OLAN10TA26 PO (15:26)
[2025-01-03] MEDS ORDERED: LUMA42CA PO (15:26)
[2025-01-03 17:18] VITALS: BP 122/69; PULSE 87; RESP 14; O2SAT 97
== END 2025-01-03 20:14 | disposition home or self-care (01) ==
LOC: EMS 14:07
DX: H57.89 Other specified disorders of eye and adnexa (principal); F20.9 Schizophrenia, unspecified; E11.9 Type 2 diabetes mellitus without complications; F31.9 Bipolar disorder, unspecified; F15.10 Other stimulant abuse, uncomplicated; F17.210 Nicotine dependence, cigarettes, uncomplicated; Z79.899 Other long term (current) drug therapy
CPT/HCPCS: 99283; Z7502